=== PATIENT | female | born 1965 | race Caucasian/White ===

== ENCOUNTER 2024-11-09 10:50 | Outpatient (AMB) | payer OTHER, SELFPAY ==
[2024-11-09 11:14] VITALS: BP 140/82; PULSE 94; O2SAT 98; BMI 38.3
--- NOTE | 2024-11-09 11:14 | MHC.OFFVIS ---
Vital Signs 11/09/24 11:14 Height 5 ft 4 in Weight 223 lb 5.252 oz BMI 38.3 BP 140/82 H Blood Pressure Location Lt brachial Position Sitting Pulse 94 Pulse Source Pulse Oximeter Pulse Oximetry (%) 98 Oxygen Delivery Method Room Air Intake Visit Reasons: + MICHAEL/CM Intake Note: Patient presents for follow up on +MICHAEL. She is a new patient. Allergies levofloxacin [From Levaquin] Allergy (Mild, Verified 11/09/24 11:19) achilles pain From Augmentin Adverse Reaction (Mild, Uncoded 11/09/24 11:17) VOMITING HPI HPI + MICHAEL/CM: Details: Dx chronic fatigue syndrome [address] Ara JORDAN. She had elevated inflammatory markers. She felt well in 2020 walking 6 miles a day. Her fatigue has worsened. She is not able to walk more than 2 miles. Drinks 5-6 cups of tea a day. She had COVID-19 three times. Second and third infection exacerbated fatigue and brain fog. She worked half time. Denies fevers, rashes, photosensitivity, oral and genital ulcers, pleurisy, dyspnea, rayanud's syndrome, urianry symptoms, joint swelling. + severe dry eyes and dry mouth. On restasis She has GI discomfort with diarrhea. She has had evaluations from GI with her last evaluation being in 2018. She was told she has IBS. hx asthma controlled, nasal allergies No family history of rheumatological disease. She reports that her father's side has history of and having autoimmune disease. MICHAEL 1:320, RF 14.8 05/2024 Review of Systems Const All systems reviewed & are unremarkable except as noted in HPI and below Physical Exam Vital Signs: Last Vital Signs Pulse 94 11/09/24 11:14 BP 140/82 H 11/09/24 11:14 Pulse Ox 98 11/09/24 11:14 Oxygen Delivery Method Room Air 11/09/24 11:14 BMI result Body Mass Index 38.3 Const Other: General: Comfortable CVS: RRR Respiratory: clear to auscultation bilaterally. Good respiratory effort Lymph nodes: No cervical lymphadenopathy present Skin: No lesions seen MSK: No tenderness of any joints. No synovitis. Good range of motion of upper extremities and lower extremities. Results Reviewed Results Reviewed: Labs from 06/18/2024 reviewed. Assessment & Plan Assessment & Plan (1) Chronic fatigue: Comment: History of chronic fatigue syndrome diagnosed in 2005. She reports history of elevated inflammatory markers. Recently symptoms have gotten worse this year. She has had COVID 3 times since 2022, which is exacerbated fatigue and brain fog. She remains functional. She has a history of chronic dry eyes and dry mouth with recent labs from May revealing high titer positive MICHAEL 1:320 and low titer positive rheumatoid factor. Her clinical presentation and serologies are concerning for Sjogren syndrome. I will workup Sjogren syndrome with antibodies obtain recent eye exam. Due to high titer positive MICHAEL, I will complete workup for systemic lupus erythematosus although my clinical suspicion is low. She does not have synovitis on exam to suggest inflammatory arthritis. Code(s): R53.82 - Chronic fatigue, unspecified Category: Medical Plan: Labs ordered Requesting last eye exam. May need to consider Elizabeth's test. After lab results are reviewed, we will consider pursuing a minor salivary gland biopsy Return to clinic in 1 month (2) Positive MICHAEL (antinuclear antibody): Code(s): R76.8 - Other specified abnormal immunological findings in serum Category: Medical Plan: See above (3) Rheumatoid factor positive: Code(s): R76.8 - Other specified abnormal immunological findings in serum Category: Medical Plan: See above (4) Sicca syndrome: Code(s): M35.00 - Sjogren syndrome, unspecified Category: Medical Plan: See above Orders: Orders Erythrocyte Sedimentation Rate Today M35.00 - Sjogren syndrome, unspecified, R53.82 - Chronic fatigue, unspecified, R76.8 - Other specified abnormal immunological findings in serum Complement C3 Today M35.00 - Sjogren syndrome, unspecified, R53.82 - Chronic fatigue, unspecified, R76.8 - Other specified abnormal immunological findings in serum Complement C4 Today M35.00 - Sjogren syndrome, unspecified, R53.82 - Chronic fatigue, unspecified, R76.8 - Other specified abnormal immunological findings in serum Sjogren's Antibodies Today M35.00 - Sjogren syndrome, unspecified, R53.82 - Chronic fatigue, unspecified, R76.8 - Other specified abnormal immunological findings in serum Creatinine Today R53.82 - Chronic fatigue, unspecified, R76.8 - Other specified abnormal immunological findings in serum Alanine Aminotransferase Today M35.00 - Sjogren syndrome, unspecified, R53.82 - Chronic fatigue, unspecified, R76.8 - Other specified abnormal immunological findings in serum Aspartate Amino Transferase Today R53.82 - Chronic fatigue, unspecified C Reactive Protein Today R53.82 - Chronic fatigue, unspecified, R76.8 - Other specified abnormal immunological findings in serum Anti DNA DS Antibody Today M35.00 - Sjogren syndrome, unspecified, R53.82 - Chronic fatigue, unspecified, R76.8 - Other specified abnormal immunological findings in serum Anti Extractable Nuclear Ag Today R53.82 - Chronic fatigue, unspecified UA w Microscopic Today M35.00 - Sjogren syndrome, unspecified, R53.82 - Chronic fatigue, unspecified, R76.8 - Other specified abnormal immunological findings in serum Protein Creatinine Ratio, Ur Today M3. - Sjogren syndrome, unspecified, R53.82 - Chronic fatigue, unspecified, R76.8 - Other specified abnormal immunological findings in serum Coding Level of Care Code New Pt Level 4 (63091) Diagnoses Chronic fatigue R53.82 Positive MICHAEL (antinuclear antibody) R76.8 Rheumatoid factor positive R76.8 Sicca syndrome M3
--- OUTSIDE RECORDS SUMMARY | 2024-11-10 01:09 | XMS_ITS | Continuity of Care Document ---
Author Organization [facility] Address [address] [place] [address]- Care Team Providers Care Senior Designer Name Role Phone Coby LINDQUIST, Monique Beebe Primary Care Physici an Encounter [facility] Date(s): 10/25/24 - 11/01/24 [facility] [address] [place] [address]- Attending Physician: Monique Tenorio NP Encounter Type: Office Visit Allergies, Adverse Reactions, Alerts Substance Criticality Severity Reaction Reaction Severity Status Augmentin Vomiting/Diarrhea Ac tive Levaquin Active Peanuts Active NSAIDs GI upset Active Medications azelastine-fluticasone 137 mcg-50 mcg/inh nasal spray 1 sprays, INSTILL 1 SPRAY INTO AFFECTED NOSTRIL S) TWO TIMES A DAY Start Date: 10/25/24 Status: Ordered Repeat number: 1 Breo Ellipta 100 mcg-25 mcg/inh inhalation powder 1 puffs, INHALE 1 PUFF INTO THE LUNGS EVERY MORNING Start Date: 10/25/24 Status: Ordered Repeat number: 1 budesonide 0.5 mg/2 mL inhalation suspension 0.5 mg, 2, mL, INHALE 1 VIAL 2 ML) VIA NEBULIZER TWICE A DAY Start Date: 10/25/24 Status: Ordered Repeat number: 1 estradiol 10 mcg vaginal tablet 1 tablet = 10 mcg, INSERT 1 TABLET VAGINALLY TWICE A WEEK Start Date: 10/25/24 Status: Ordered Repeat number: 1 Magnesium Citrate By Mouth, 0 Refills, Maintenance, 10/25/24 9:43:00 AM EST, Partial fill upon patient request if theprescription is for a schedule II opioid drug. Start Date: 10/25/24 Status: Ordered Repeat number: 1 Probiotic Formula By Mouth, Daily, 0 Refills, Maintenance, 10/25/24 9:43:00 AM EST, Partial fill upon patient requestif the prescription is for a schedule II opioid drug. Start Date: 10/25/24 Status: Ordered Repeat number: 1 tretinoin 0.05% topical cream See Instructions, 1 applicator, # 45 Gm, 0 Refills, Maintenance, 10/25/24 10:05:00 AM EST, Cream, [facility], Partial fill upon patient request if the prescription is for a scheduleII opioid drug. (Pt will pay out pocket for this med)., 1 applicator, 163, cm, 10/25/24 9:35:00 EST, Height, 101.5, kg, 08/10/23 23:09:00 EDT, Dry Weight Start Date: 10/25/24 Status: Ordered Quantity: 45.0 Unit: g Repeat number: 1 Indication: Other specified disorders of the skin and subcutaneous tissue triamcinolone 0.1% topical cream See Instructions, to affected area, # 30 Gm, 0 Refills, Maintenance, 10/25/24 10:05:00 AM EST, Cream, [facility], Partial fill upon patient request if the prescription is for a schedule II opioid drug., to affected area, 163, cm, 10/25/24 9:35:00 EST, Height, 101.5, kg, 08/10/23 23:09:00 EDT, Dry Weight Start Date: 10/25/24 Status: Ordered Quantity: 30.0 Unit: g Repeat number: 1 Indication: Dermatitis, unspecified triamcinolone 0.1% topical ointment 1 application, Topically, 2 times a day, # 30 Gm, 0 Refills, Maintenance, 10/28/24 8:52:00 AM EST, Ointment, [facility], Partial fill upon patient request if the prescription is fora schedule II opioid drug., 1 application Topically 2 times a day,x14 days, 163, cm, 10/25/24 9:35:00 EST, Height, 101.5, kg, 08/10/23 23:09:00 EDT, Dry Weight Start Date: 10/28/24 Stop Date: 11/11/24 Status: Ordered Quantity: 30.0 Unit: g Repeat number: 1 Indication: Dermatitis, unspecified Vitamin C By Mouth, Daily, 0 Refills, Maintenance, 10/25/24 9:43:00 AM EST, Partial fill upon patient requestif the prescription is for a schedule II opioid drug. 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 Confirmed Active Prediabetes Confirmed Active Vital Signs Most recent to oldest [Reference Range]: 1 Height 163 cm (10/25/24 9:35 AM) Weight 102.2 kg (10/25/24 9:35 AM) Oxygen Saturation [94-100 %] 98 % (10/25/24 9:35 AM) Pulse Rate [55-90 bpm] 91 bpm *H* (10/25/24 9:35 AM) Body Mass Index [18.5-24.99 kg/m2] 38.47 kg/m2 *>HHI* (10/25/24 9:35 AM) Blood Pressure [90-138/55-84 mm Hg] 131/ 85mm Hg (10/25/24 9:35 AM) Blood pressure sites Arm, left (10/25/24 9:35 AM) Weight Obtained Via Standing scale (10/25/24 9:35 AM) Social History Social History Type Response Smoking Status Never (less than 100 in lifetime) entered on: 08/10/23 Sex Sex Representation Female (finding) Note * Cece Samaniego: PERFORM Event Display: Patient Education/Instruction Authored Date: [id number] Ambulatory Adult Visit Summary [address] [address] Name: HOLDEN KAYE : 1965?? Visit: 2024 09:31?? Ambulatory Visit Instructions ?? Your Care Team Primary Care Provider Monique Tenorio NP? This Visit Provider Monique Tenorio NP Your Diagnosis Prediabetes Age-related facial wrinkles Acute dermatitis Myalgic encephalomyelitis/chronic fatigue syndrome (ME/CFS) Prediabetes Polyarthritis with positive rheumatoid factor Positive MICHAEL (antinuclear antibody) Non-seasonal allergic rhinitis due to other allergic trigger Obesity, Class III, BMI 40-49.9 (morbid obesity) Vitals Signs Pulse Rate:??91 bpm??High Height: 163 cm Systolic Blood Pressure: 131 mm Hg Weight: 102.2 kg Diastolic Blood Pressure:??85 mm Hg??High Body Mass Index:??38.47 kg/m2??Critical Oxygen Saturation: 98 % Body surface area: 2.15 What to do next Scheduled Follow-Up Appointments Thursday 10:40 AM EST ?? With: Monique Tenorio NP Where: [address] [address]- Status: Pending Follow-Up Appointments Follow up Appointment - Ordered?-- 3 months, 10/25/24 10:09:00 EST Future Orders Hemoglobin A1C (Monitoring) - Routine, Once, 10/25/24 10:02:00 EST, Order for Today, [facility], Blood?? Medications The list below reflects the information in our records and provided by you today along with any changes made during this visit. Please continue your medications until treatment is completed or stopped by your provider. If this is different from the information you have or there are other questions,please contact the prescribing provider. What How Much When Why Instructions New Tretinoin Topical (tretinoin 0.05% topical cream) See instructions Age-related facial wrinkles 1 applicator ?? Pickup at [facility] New Triamcinolone Topical (triamcinolone 0.1% topical cream) See instructions Acute dermatitis to affected area ?? Pickup at [facility] Unchanged Ascorbic Acid (Vitamin C) Oral Daily Unchanged azelastine-fluticasone nasal (azelastine-fluticasone 137 mcg-50 mcg/ inh nasal spray) 1 spray(s) INSTILL 1 SPRAY INTO AFFECTED NOSTRIL S) TWO TIMES A DAY ?? Unchanged bifidobacterium-lactobacillus (Probiotic Formula) Oral Daily Unchanged Budesonide (budesonide 0.5 mg/ 2 mL inhalation suspension) 2 Milliliter INHALE 1 VIAL ?? 2 ML) VIA NEBULIZER TWICE A DAY ?? Unchanged Estradiol Topical (estradiol 10 mcg vaginal tablet) 1 tab(s) INSERT 1 TABLET VAGINALLY TWICE A WEEK ?? Unchanged fluticasone-vilanterol (Breo Ellipta 100 mcg-25 mcg/ inh inhalation powder) 1 puff(s) INHALE 1 PUFF INTO THE LUNGS EVERY MORNING ?? Unchanged Magnesium Citrate Oral Pharmacy Information [facility]: [address], [place] [id number] [phone] Test Performed Below is a partial list of the tests performed during your Visit. You may have had other tests and procedures not included in this list. Please discuss all test results with your provider. Hemoglobin A1C (Monitoring)?-- Results Pending -- Medications and Immunizations Administered Medications Given During Visit No medications given during this visit.?? Allergies (NKA means No Known Allergies) Augmentin??(Vomiting/Diarrhea) Levaquin NSAIDs??(GI upset) Peanuts Common Emergency Awareness Tips IS IT A STROKE? Act FAST and Check for these signs: FACE Does the face look uneven? ARM Does one arm drift down? SPEECH Does their speech sound strange? TIME Call at any sign of stroke ?? Heart Attack Signs Chest discomfort: Most heart attacks involve discomfort in the center of the chest and lasts more than a few minutes, or goes away and comes back. It can feel like uncomfortable pressure, squeezing, fullness or pain. Discomfort in upper body: Symptoms can include pain or discomfort in one or both arms, back, neck, jaw or stomach. Shortness of breath: With or without discomfort. Other signs: Breaking out in a cold sweat, nausea, or lightheaded. Remember, MINUTES DO MATTER. If you experience any of these heart attack warning signs, call to get immediate medical attention! ?? Smoking can increase your chances of developing chronic health problems and can cause harmful effects to other family members in your house. If you smoke, you are strongly encouraged to quit. Please call [facility] at [phone] or [phone] ([phone]) or log in to [email or web address] for referrals to smoking cessation programs. ?? The National Suicide Prevention Hotline is available 22/06 if you or someone you know needs to find a reason to keep living. By calling 1-562-089-mhsn (1586) you'll be connected to a skilled, trained counselor at a crisis center in your area. [facility] [employer] Portal You can view and manage your care through the patient portal or by using a health care ethan of your choosing. [employer] is a website that allows you to securely view your medical information including your hospital discharge summary, office visit summaries, medications and follow-up visits. You can also request appointments, renew medications, and request access to your medical information using a health care ethan of your choosing, or just ask a question. You can enroll at [email or web address] or register during your next office visit. [facility], in keeping with [facility] guidance, no longer requires face masks for staff, patientsor visitors in most situations. Similiar to time spent indoors at other locations, there is the chance that you were exposed to repiratory viruses during your time with us (such as flu or COVID-19). If you develop symptoms concerning for a viral respiratory infection, please seek testing (and treatment if indicated) from your medical provider or home test kit. ?? Disclaimer: The information provided is of a general nature and is intended to be used in conjunction with the recommendations and advice of your health care practitioner. Every effort has been made to ensure that the information provided is accurate and complete at the time it is provided to you however, as your needs change, or, as new information becomes available, different or additional instructions may be required. ?? If you have questions, please consult with your primary care provider or pharmacist, as appropriate. This information is not intended to serve as substitution for assessment and evaluation by a qualified health care provider. If you do not have a primary care provider, you may find a [facility] provider by calling [facility] Link at [phone]. Patient Care team information Care Team Personnel Name: Monique Tenorio NP Position: [facility] PCO Associate Professional Member Role: PCP Address: [address] [place] [id number] Telecom: Name: Shahid Hinds Position: [facility] Outreach Member Role: [employer] Consulting Physician Care Team Related Persons Name: FADI GRAY Insurance Providers Guarantor name: HOLDEN KAYE [facility] Information #: 2 [facility] Member Number: [id number] Policy Number: NA Group Number: [id number] Health Plan Information #: 4 Payer: [facility] Member Number: [id number] Policy Number: NA Group Number: [id number] Health Plan Information #: 1 Payer: [facility] [employer] HMO Member Number: [id number] Policy Number: NA Group Number: [id number] Health Plan Information #: 3 Payer: [facility] FF NON BHP HMO Member Number: [id number] Policy Number: NA Group Number: [id number]
== END 2024-11-09 12:09 | disposition home or self-care (01) ==
PROVIDERS: Visit Provider Internal Medicine Rheumatology
DX: R53.82 Chronic fatigue, unspecified (principal); R76.8 Other specified abnormal immunological findings in serum; M35.00 Sjogren syndrome, unspecified
CPT/HCPCS: 99204

== ENCOUNTER → 2024-11-09 10:50 | Outpatient (BNVA) | payer OTHER, SELFPAY | PROVIDERS: Visit Provider Internal Medicine Rheumatology ==

== ENCOUNTER 2024-11-09 12:41 | Outpatient (REF) | payer OTHER, SELFPAY ==
[2024-11-09 14:34] LABS: Aspartate Amino Transferase 22 U/L (5-31); C Reactive Protein 0.69 mg/dL (< or = 0.50); Estimated Glomerular Filt Rate > 60
[2024-11-09 14:40] LABS: Alanine Aminotransferase 16 U/L (0-31)
[2024-11-09 14:52] LABS: Erythrocyte Sedimentation Rate 23 MM/HR (0-20)
[2024-11-10 15:49] LABS: Anti DNA DS Antibody <1 IU/mL; Antibody to SS-A Antigen <1.0 NEG AI (<1.0 NEG); Antibody to SS-B Antigen <1.0 NEG AI (<1.0 NEG); SM/Ribonucleoprotein Ab <1.0 NEG AI (<1.0 NEG); Smith Protein <1.0 NEG AI (<1.0 NEG)
[2024-11-14 11:09] LABS: Complement C3 167 mg/dL (83-193)
== END 2024-11-09 12:42 | disposition home or self-care (01) ==
LOC: HO.WFDLDS 12:41
PROVIDERS: Visit Provider Internal Medicine Rheumatology
DX: M35.00 Sjogren syndrome, unspecified (principal); R76.8 Other specified abnormal immunological findings in serum; R53.82 Chronic fatigue, unspecified; R53.83 Other fatigue
CPT/HCPCS: 36415; 82565; 84450; 84460; 85652; 86140; 86160; 86225; 86235

== ENCOUNTER 2024-12-06 17:47 | Outpatient (REF) | payer OTHER, SELFPAY ==
[2024-12-06 18:14] LABS: Appearance Urine Clear; Color Urine Yellow; Glucose Urine UA Negative (Negative); Leukocyte Esterase Urine Negative (Negative); Nitrite Urine Negative (Negative); Urine Blood Negative (Negative); Urine Ketones Negative (Negative); Urine Protein Negative (Neg-Trace)
[2024-12-06 18:19] LABS: Bacteria Urine Trace (None Seen); Creatinine Urine 48.24 mg/dL; Hyaline Casts Urine 0-2 /LPF (0-2); RBC Urine 0-2 /HPF (0-2); Total Protein Urine Random < 7 mg/dL (<12); WBC Urine 0-5 /HPF (0-5)
--- OUTSIDE RECORDS SUMMARY | 2024-12-06 19:39 | XMS_ITS | Continuity of Care Document ---
Author Organization [facility] Address [address] [place] [address]- Care Team Providers Care Post Adoption Coordinator Name Role Phone Coby LINDQUIST, Monique Beebe Primary Care Physici an Encounter [facility] Date(s): 10/26/24 - 11/25/24 [facility] [address] [place] [address]- Encounter Type: Triage Allergies, Adverse Reactions, Alerts Substance Criticality Severity [...] rheumatoid factor Confirmed Active Prediabetes Confirmed Active Social History Social History Type Response Smoking Status Never (less than 100 in lifetime) entered on: 08/10/23 Sex Sex Representation Female (finding) Patient Care team information Care Team Personnel Name: Monique Tenorio NP Position: [facility] PCO Associate Professional Member Role: PCP Address: [address] [place] [address] Telecom: Name: Shahid Hinds Position: [facility] Outreach Member Role: [employer] Consulting Physician Care Team Related Persons Name: FADI GRAY Insurance Providers Guarantor name: HOLDEN KAYE [employer] Plan Information #: 1 Payer: [employer] H[employer] Member Number: NA Policy Number: NA Group Number: NA
--- OUTSIDE RECORDS SUMMARY | 2024-12-06 19:39 | XMS_ITS | Continuity of Care Document ---
Author Organization [facility] Address [address] [place] [address]- Care Team Providers Care Mathematical Statistician Name Role Phone Coby LINDQUIST, Monique Beebe Primary Care Physici an Encounter [facility] Date(s): 10/25/24 - 11/24/24 [facility] [address] [place] [address]- Encounter Type: Triage Allergies, Adverse Reactions, Alerts [...] Team Personnel Name: Monique Tenorio NP Position: [facility] PCO Associate Professional Member Role: PCP Address: [address] [place] [address] Telecom: Name: Shahid Hinds Position: [facility] Outreach Member Role: Lifetime Consulting Physician Care Team Related Persons Name: FADI GRAY Insurance Providers Guarantor name: HOLDEN KAYE C[employer] Plan Information #: 1 Payer: [employer] HMO Member Number: NA Policy Number: NA Group Number: [id number]
== END 2024-12-06 17:48 | disposition home or self-care (01) ==
LOC: HO.LNP 17:47
PROVIDERS: Visit Provider Internal Medicine Rheumatology
DX: M35.00 Sjogren syndrome, unspecified (principal); R76.8 Other specified abnormal immunological findings in serum; R53.82 Chronic fatigue, unspecified
CPT/HCPCS: 81001; 82570; 84156

== ENCOUNTER 2025-01-26 07:55 | Outpatient (AMB) | payer OTHER, SELFPAY ==
--- OUTSIDE RECORDS SUMMARY | 2025-01-26 08:02 | XMS_ITS | Encounter Summary ---
Author Organization [email or web address] [facility] Address [address] [place] [id number] Care Team Providers Care Design Director Name Role Phone Monique Tenorio APPLICATIONS INSTRUCTOR Primary Care Provider Unavailable Jazzy Adan Unavailable Unavailable Provider, Not In System Primary Care Provider Un available Encounter Details Date Type Department Care Team (Late st Contact Info) Description 11/18/2022 [facility] [place] [address] [place] [address] Dental, Provider, DDS Social History Tobacco Use Types Packs/Day Years Used Date Smoking Tobacco: Never Assessed Comments Unknown Sex and Gender Information Value Date Recorded Sex Assigned at Female 12/22/2022 11:00 AM EST Legal Sex Female 5:35 PM EDT Gender Identity Female 12/22/2022 11:00 AM EST Sexual Orientation Straight 12/22/2022 11 :00 AM EST documented as of this encounter Plan of Treatment Upcoming Encounters Date Type Department Care Team (Late st Contact Info) Description 08/10/2025 10:10 AM EDT Office Visit [place] [facility] [address] [place] [address] Candice Miranda documented as of this encounter Procedures Procedure Name Priority Date/Time Associated Diagnosis Comments 13 DO RESIN-BASED COMPOSITE - 2 SURF, POSTERIOR Routine 10/17/2022 12:00 AM EST PROPHYLAXIS - ADULT Routine 10/17/2022 1 2:00 AM EST PERIODIC ORAL EVALUATION - ESTABLISHED PATIENT Routine 10/17/2022 12:00 AM EST documented in this encounter Visit Diagnoses Not on filedocumented in this encounter Care Teams Design Director Relationship Specialty Start Date End Date Monique Tenorio FNP PCP - General Family Medicine 02/19/23 11/24/24 Provider, Not In System PCP - General Family Medicine 11/25/24 Jazzy Adan [facility] Health Worker 04/06/23 documented as of this encounter
--- OUTSIDE RECORDS SUMMARY | 2025-01-26 08:02 | XMS_ITS | Encounter Summary ---
Author Organization [facility] Address [address] [place] [address] Care Team Providers Care Hand Fabric Cutter Name Role Phone Loco, Jazzy Unavailable Unavailable Provider, Not In System Primary Care Provider Un available Reason for Visit * Reason Comments Med Refill Encounter Details Date Type Department Care Team (Late st Contact Info) Description 01/03/2025 [address]ill [place] [facility] [address] [place] [address] Claire Solis, [address] [place] [address] Non-seasonal allergic rhinitis, unspecified trigger Social History Tobacco Use Types Packs/Day Years Used Date Smoking Tobacco: Never Smokeless Tobacco: Never Alcohol Use Standard Drinks/Week Comments Yes 0 (1 standard drink = 0.6 oz pur e alcohol) less than weekly Depression Answer Date Recorded Patient Health Questionnaire-9 Score 12 04/27/2024 Patient Health Questionnaire-9 Score 12 04/27/2024 Last PHQ-9: Questionnaire Data Not on file 0 04/27/2024 Housing Stability Answer Date Recorded What is your housing situation today? I have bulmaro ruiz 09/28/[address] you li ve. Do you have problems with any of the following? None of the above 09/28/2023 Food Insecurity Answer Date Recorded Within the past 12 months, y ou worried that your food would run out before you got money to buy more: Never True 09/28/2023 Within the past 12 months,th e food you bought just didn't last and you didn't have enough money to get more: Never True Transportation Answer Date Recorded In the past 12 months, has l ack of transportation kept you from medical appts, meetings, work or from getting things needed for daily living? No 09/28/2023 Utilities Answer Date Recorded In the past 12 months, has t he electric, gas, oil or water company threatened to shut off services in your home? No 09/28/2023 Depression Answer Date Recorded Patient Health Questionnaire-2 Score 0 04/27/2024 Education Answer Date Recorded What is the highest level of school you have completed or the highest degree you have received? Master's degree (e.g., MA, MS, Michel, MEd, ELECTRONIC DEVICE MONITOR, MISHA) 07/22/2023 Comments Unknown Sex and Gender Information Value Date Recorded Sex Assigned at Female 12/22/2022 11:00 AM EST Legal Sex Female 5:35 PM EDT Gender Identity Female 12/22/2022 11:00 AM EST Sexual Orientation Straight 12/22/2022 11 :00 AM EST 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 on file Not on file documented as of this encounter Plan of Treatment Upcoming Encounters Date Type Department Care Team (Late st Contact Info) Description 08/10/2025 10:10 AM EDT Office Visit [facility] D[facility] [address] [place] [address] Candice Miranda documented as of this encounter Visit Diagnoses Diagnosis Non-seasonal allergic rhinitis, unspecified trigger documented in this encounter Additional Health Concerns Assessment Noted Time PHQ-9 Depression Total Score: 12 024 4:32 PM EDT documented as of this encounter Care Teams Hand Fabric Cutter Relationship Specialty Start Date End Date Provider, Not In System PCP - General Family Medicine 11/25/24 Jazzy Adan [facility] Worker 04/06/23 documented as of this encounter
--- OUTSIDE RECORDS SUMMARY | 2025-01-26 08:02 | XMS_ITS | Clinical Summary ---
Author Organization [employer] Address [address] [place] [address] [place] [address] Care Team Providers Care Mold Checker Name Role Phone Jazzy Adan Unavailable Unavailable Provider, Not In System Primary Care Provider Un available Allergies Active Allergy Reactions Criticality Noted Date Comments Amoxicillin-Pot Clavulanate Low 12/22/2022 Other reaction(s): stomach upset, ok with amox Erythromycin Low 12/22/2022 Other reaction(s): stomach upset, ok with azith Levofloxacin High 12/22/2022 Other reaction(s): achilles tendonitis Nsaids Low 12/22/2022 Other reaction(s): diarrhea Other Anaphylaxis High 06/12/2023 Cilantro - mouth and tongue swelling Oxycodone Itching Low 03/17/2023 Oxycodone-Acetaminophen 09/06/2012 Other reaction(s): itching Peanut-Containing Drug Products Low 12/22/2022 Budesonide-Formoterol Fumarate Diarrhea Low 03/17/2023 Medications diphenhydrAMINE (BENADryl) 25 MG capsule Benadryl Active ascorbic acid (Vitamin C) 100 MG chewable tablet Vitamin C Active Cetirizine HCl (ZyrTEC ALLERGY) 10 MG capsule ZyrTEC Allergy Activ e LORazepam (Ativan) 0.5 MG tablet if needed. 04/21/20 22 Active albuterol (Proventil HFA) 108 (90 Base) MCG/ACT inhalerIndicati ons:Asthma in adult without complication, unspecified asthma severity, unspecified whether persistent Inhale 2 puffs every 6 (six) hours if needed for wheezing. 18 g 3 04/15/20 23 Active Vagifem 10 MCG tablet vaginal tablet INSERT ONE TABLET VAGINALLY TWICE A WEEK 8 tablet 4 05/30/20 24 Active EPINEPHrine (Epipen) 0.3 MG/0.3ML injection syringe USE 1 INJECTION DIRECTED NEEDED 2 each 1 05/30/20 24 Active Breo Ellipta 100-25 MCG/ACT aerosol powderIndicatio ns:Moderate persistent asthma, unspecified whether complicated INHALE ONE PUFF BY MOUTH EVERY MORNING 60 each 3 08/12/20 24 Active budesonide (Pulmicort) 0.5 MG/2ML nebulizer solution INHALE 1 VIAL (2ML) VIA NEBULIZER TWCE DAILY 120 mL 11 08/25/20 24 Active tretinoin (Retin-A) 0.05 % creamIndication s:Acne, unspecified acne type APPLY TOPICALLY AT BEDTIME 45 g 10/05/20 24 025 Active cycloSPORINE (Restasis) 0.05 % ophthalmic emulsionIndicat ions:Keratitis sicca Administer 1 drop into both eyes 2 times daily. 180 each 3 11/02/20 24 Active Azelastine-Flut icasone 137-50 MCG/ACT suspensionIndic ations:Non-seas onal allergic rhinitis, unspecified trigger INSTILL 1 SPRAY INTO AFFECTED NOSTRIL(S) TWO TIMES A DAY 23 g 1 01/04/20 25 Active Azelastine-Flut icasone 137-50 MCG/ACT suspensionIndic ations:Non-seas onal allergic rhinitis, unspecified trigger INSTILL 1 SPRAY INTO AFFECTED NOSTRIL(S) TWICE DAILY 23 g 1 09/19/20 24 025 Discontinued Active Problems Problem Noted Date Diagnosed Date Hepatic steatosis 06/08/2024 Abdominal bloating 04/29/2024 Transaminitis 07/25/2023 Overview (07/25/2023): Elevated alk phos Scheduled for liver UL on 07/29/23. Prediabetes 07/25/2023 Overview (07/25/2023): A1c @ 5.7% will recheck in 6 months. Acute anxiety 04/08/2023 Adjustment reaction with anxiety and depression 04/08/2023 Allergic rhinitis 04/08/2023 Asthma in adult 04/08/2023 Atrophic vaginitis 04/08/2023 Chronic low back pain 04/08/2023 Elevated LDL cholesterol level 04/08/2023 Irritable bowel syndrome with diarrhea 3 Overview (04/29/2024): Lets try to eliminate non-essential medications to see if this helps with overall symptoms. - Singulair (to be discontinued) - Muscle relaxer (to be discontinued) - Digestive enzymes (to be discontinued) - Cromolyn (to be discontinued) - B complex vitamins (to be discontinued) - Probiotic (to be discontinued) - Vitamin K (to be discontinued) - Vitamin C (to be discontinued) - Benadryl (to be discontinued) - Flonase (Continue Daily) - Zyrtec(Continue daily) Moderate persistent asthma 04/08/2023 Primary insomnia 04/08/2023 Seasonal allergic rhinitis due to pollen 023 Overview (07/25/2023): Followed by allergy/ immunology. Up coming appointment in 09/21 Vitamin D deficiency 04/08/2023 Depression 03/21/2023 Fatigue 03/21/2023 Migraine without aura and responsive to treatmen t 03/21/2023 Myositis 03/21/2023 Obesity 03/21/2023 Polycystic ovaries 03/21/2023 Resolved Problems Problem Noted Date Diagnosed Date Resolved Date Stage 1 mild COPD by GOLD classification 04/08/2023 07/25/2023 Encounters Date Type Department Care Team Description 01/03/[address] [facility] MEDICAL [address] [place] [address] Claire Solis DO Non-seasonal allergic rhinitis, unspecified trigger 11/18/[address] [facility] MEDICAL [address] [place] [address] Monique Tenorio FNP Outreach 11/02/[address] [facility] OPTOMETRY [address] [place] [address] Denisa Chan, OD Keratitis sicca 11/01/2024 10:00 AM EST Office Visit [facility] DENTAL [address] [place] [address] Shira Santiago Encounter for dental examination (Primary Dx); Stage 2 grade B generalized periodontitis per AAP/EFP 2017 classification 11/01/2024 Telephone [facility] MEDICAL [address] [place] [address] Monique Tenorio FNP Med Refill from Last 3 Months Immunizations Name Administration Dates Next Due Influenza Injectable Quadriv alant Preservative Free IIV4 MDCK 11/03/2022,08/19/2021 Influenza injectable quadriv alent IIV4 with preservative 10/14/2019 Influenza injectable quadriv alent preservative free 12/18/2023,07/25/2020 Influenza, IIV3, injectable 07/27/2020,1 ,09/20/2010,08/23,10/23/2008 Influenza, Split (incl. americo fied surface antigen) 09/20/2010 Novel [id number], all formulations 11/13/2009 PPD Test 12/14/2007 Pneumococcal Conjugate PCV 20 11/03/2022 Rabies, intramuscular 07/06/2012, 012,06/26/2012,06/23 TD (adult), 2 Lf tetanus tox oid, preservative free, adsorbed 11/18/2006 Tdap 11/09/2022 Zoster, Recombinant 11/05/2020,09/06/2020 Social History Tobacco Use Types Packs/Day Years Used Date Smoking Tobacco: Never Smokeless Tobacco: Never Tobacco Cessation:Counseling Given: Not Answered Alcohol Use Standard Drinks/Week Comments Yes 0 [...] Master's degree (e.g., MA, MS, Michel, MEd, BOSOM PRESSER, MISHA) 07/22/2023 Comments Unknown Sex and Gender Information Value Date Recorded Sex Assigned at Female 12/22/2022 11:00 AM EST Legal Sex Female 5:35 PM EDT Gender Identity Female 12/22/2022 11:00 AM EST Sexual Orientation Straight 12/22/2022 11 :00 AM EST 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 on file Not on file Last Filed Vital Signs Vital Sign Reading Time Taken Comments Blood Pressure 112/80 06/29/2024 8:34 AM EDT Pulse 101 06/08/2024 1:54 PM EDT Temperature 36.2 ??C (97.1 ??F) 06/29/2024 8:34 AM ED T Respiratory Rate 16 04/27/2024 4:23 PM EDT Oxygen Saturation 98% 06/08/2024 1:54 PM EDT Inhaled Oxygen Concentration - - Weight 104 kg (228 lb 6.4 oz) 06/08/2024 1:54 PM EDT Height 162.6 cm (5' 4 ) 06/08/2024 1:54 PM EDT Body Mass Index 39.2 06/08/2024 1:54 PM EDT Plan of Treatment Upcoming Encounters Date Type Department Care Team (Late st Contact Info) Description 08/10/2025 10:10 AM EDT Office Visit [facility] DENTAL [address] [place] [address] Raghu Mirandaie Health Maintenance Due Date Last Done Comments CT Colonography 1967 FIT DNA/Cologuard 1967 FIT 1967 FOBT 1965 Sigmoidoscopy 1967 Alcohol/Substance Use Screening 1979 Hepatitis A Vaccines (1 of 2 - Risk 2-dose series) 1986 Hepatitis B Vaccines (1 of 3 - 19+ 3-dose series) 1986 Cervical Cancer Screening 06/29/2024 HPV/Cotest 06/29/2024 06/29/2023, 02/20/2022 Pap Smear 06/29/2024 06/29/2023, 02/20/2022 SDOH Screening 06/29/2024 06/29/2023 Diabetes: Hemoglobin A1C 07/15/2024 023, 02/12/2022, 02/12/2022, Additional history exists Depression Monitoring (PHQ-9) 10/28/2024 04/27/2024, 04/27/2024 Dental X-Ray: Full Mouth 11/02/2024 11/01/2021, 07/01 Dental X-Ray: Bitewings 01/05/2025 01/04/20 24, 11/01/2021, 12/15/2018, Additional history exists Depression Screening 04/27/2025 04/27/2024, 04/27/20 24 Dental Oral Exam 05/03/2025 11/01/2024, 03/2024, 10/17/2022, Additional history exists Dental Prophylaxis 05/03/2025 11/01/2024, 0 01/04/2024, 10/17/2022, Additional history exists Tobacco Screening 11/01/2025 11/01/2024 Mammogram 07/11/2026 07/11/2024, 06/30, 09/11/2021, Additional history exists Colonoscopy 11/17/2028 11/17/2018, 11/17/2018 Colorectal Cancer Screening 11/17/2028 Lipid Panel 06/08/2029 06/08/2024, 06/30, 02/12/2022, Additional history exists DTaP/Tdap/Td Vaccines (2 - Td or Tdap) 11/09/2032 11/09/2022, 11/18/2006 RSV Patients and Patients Aged 60 years or older (1 - 1-dose 75+ series) 2042 Zoster Vaccines Completed 11/05/2020, 09/06/2020 Pneumococcal Vaccine: 50+ Years Completed 11/03/2022 HIV Screening Completed 06/08/2024 Hepatitis C Screening Completed 06/08/2024 Influenza Vaccine Completed 09/18/2024, , 11/03/2022, Additional history exists COVID-19 Vaccine Completed 10/14/2024, , 04/14/2022, Additional history exists HIB Vaccines Aged Out No longer eligi ble based on patient's age to complete this topic HPV Vaccines Aged Out No longer eligi ble based on patient's age to complete this topic IPV Vaccines Aged Out No longer eligi ble based on patient's age to complete this topic Meningococcal Vaccine Aged Out No shruthi immanuel eligible based on patient's age to complete this topic RSV under 20 months Aged Out No longe r eligible based on patient's age to complete this topic Rotavirus Vaccines Aged Out No longer eligible based on patient's age to complete this topic Procedures Procedure Name Priority Date/Time Associated Diagnosis Comments AMB REFERRAL TO RHEUMATOLOGY Routine 11/09/2024 Positive MICHAEL (antinuclear antibody) Rheumatoid factor positive ORAL HYGIENE INSTRUCTIONS Routine 11/01/2024 10:00 AM EST Full PROPHYLAXIS - ADULT Routine 11/01/2024 10:00 AM EST PERIODIC ORAL EVALUATION - ESTABLISHED PATIENT Routine 11/01/2024 10:00 AM EST BI MAMMOGRAM SCREENING TOMOSYNTHESIS BILATERAL Routine 07/11/2024 8:45 AM EDT HEPATITIS C VIRAL RNA, QN REAL TIME PCR W/REFLS Routine 06/08/2024 3:08 PM EDT Need for hepatitis C screening test HIV P24 ANTIGEN/ANTIBODY WITH REFLEX TO CONFIRMATION Routine 06/08/2024 3:08 PM EDT Encounter for screening for HIV LIPID PANEL, STANDARD Routine 06/08/2024 3:08 PM EDT Elevated LDL cholesterol level BITEWINGS - 4 RADIOGRAPHIC IMAGES Routine 01/04/2024 2:00 PM EST HEMOGLOBIN A1C Routine 07/15/2023 9:10 AM EDT Pre-diabetes PAP, LB WITH CT/GC AND HPV Routine 06/29/2023 4:14 PM EDT INTRAORAL - COMPLETE SERIES OF RADIOGRAPHIC IMAGES Routine 11/01/2021 12:00 AM EST HM COLONOSCOPY Routine 11/17/2018 from Last 3 Months or Most Recently Relevant to Health Maintenance Results * Referral to Rheumatology (11/09/2024) Monique Tenorio FUNERAL COUNSELOR OUTPATIENT REFERRAL OR DERABLES Final Result * BI Mammogram Screening Tomosynthesis Bilateral (07/11/2024 8:45 AM EDT) Anatomical Region Laterality Modality Breast Bilateral Mammography 07/11/2024 8:45 AM EDT Narrative 07/11/2024 4:52 PM EDT PROCEDURE: MM Digital Mammo Screening INDICATION: ??Screening for breast cancer. ??No known palpable abnormalities. COMPARISON: Back to 05/12/2019. TECHNIQUE:Full-field digital CC and MLO 3D tomosynthesis images of both breasts were acquired. Computer-aided detection (CAD) was utilized in the interpretation of this study. DENSITY: There are scattered areas of fibroglandular density. FINDINGS: No suspicious masses, microcalcifications, areas of architectural distortion, or skin thickening to suggest malignancy. IMPRESSION: No mammographic evidence of malignancy. RECOMMENDATION: Annual mammographic screening. BI-RADS: 1 (Negative) Lay letter mailed to patient WSN: [id number] Ordering Physician: Hallie Bass Dictated By: ?Migue Cheryr MD Dictated Date/Time: ?07/11/24 4:11 pm Reviewed By: ?Migue Cherry MD Signed By: ? Migue Cherry MD Signed Date/Time: ? 07/11/24 4:11 pm Transcribed By: ? [facility] Date/Time: ? 07/11/24 4:06 pm Birads: Procedure Note Donotuseinterpreter, Image - 07/11/2024 PROCEDURE: MM Digital Mammo Screening INDICATION: Screening for breast cancer. No known palpableabnormalities. COMPARISON: Back to 05/12/2019. TECHNIQUE:Full-field digital CC and MLO 3D tomosynthesis images of bothbreasts were acquired. Computer-aided detection (CAD) was utilized in theinterpretation of this study. DENSITY: There are scattered areas of fibroglandular density. FINDINGS: No suspicious masses, microcalcifications, areas ofarchitectural distortion, or skin thickening to suggest malignancy. IMPRESSION: No mammographic evidence of malignancy. RECOMMENDATION: Annual mammographic screening. BI-RADS: 1 (Negative) Lay letter mailed to patient WSN: [id number] Ordering Physician: Hallie Bass Dictated By: Migue Cherry MD Dictated Date/Time: 07/11/24 4:11 pm Reviewed By: Migue Cherry MD Signed By: Migue Cherry MD Signed Date/Time: 07/11/24 4:11 pm Transcribed By: [facility] Date/Time: 07/11/24 4:06 pm Birads: us Hallie Bass MD IMG BI PROCEDURES Final Result * Hepatitis C Viral RNA, Quantitative Real-Time PCR with Reflexes (06/08/2024 3:08 PM EDT) HCV RNA, QN Real Time PCR HCV Not Detected IU/mL [facility] 1 HCV log10 CANCELED log10 IU/mL [facility] 1 Comment: Unable to calculate result since non-numeric result obtained for component test. Result canceled by the ancillary. Test Information: Comment [facility] 1 Comment:The quantitative ran ge of this assay is 15 IU/mL to 100 million IU/mL. HCV Genotype CANCELED [facility] 1 Comment: Not indicated Result canceled by the ancillary. Blood 06/08/2024 3:08 PM EDT 06/08/2024 Narrative [facility] 1 - 06/11/2024 4:05 PM EDT Performed at: ??01 - [facility] ??[id number] Physiotherapy Assistant: Glenda Soriano MD, Phone: ??[phone] [facility] B[facility] ORDERAB[facility] E dited Result - Final Performing Organization Address [facility] Co de Phone Number [facility] 1 * HIV p24 Antigen/Antibody With Reflex to Confirmation (06/08/2024 3:08 PM EDT) Pathologist [facility] HIV Ab/p24 Ag Screen Non Reactive Non Reactive [facility] 1 Comment: HIV Negative HIV-1/HIV-2 antibodies and HIV-1 p24 antigen were NOT detected. There is no laboratory evidence of HIV infection. Blood Venous blood specimen / Unknown 06/08/2024 3:08 PM EDT 06/08/2024 Narrative [facility] 1 - 06/10/2024 8:08 AM EDT Performed at: ??01 - [facility] ??[id number] Physiotherapy Assistant: Carrie Bazzi MD, Phone: ??[phone] [facility] BLOOD ORDERABLES F inal Result Performing Organization Address [facility] Co de Phone Number [facility] 1 * (ABNORMAL) Lipid Panel, Standard (06/08/2024 3:08 PM EDT) Cholesterol, Total 236(H) 100 - 199 mg/dL [facility] 1 Triglycerides 82 0 - 149 mg/dL [facility] 1 HDL Cholesterol 86 >39 mg/dL [facility] 1 VLDL Cholesterol Eben 14 5 - 40 mg/dL [facility] 1 LDL Chol Calc (NIH) 136(H) 0 - 99 mg/dL [facility] 1 Blood Venous blood specimen / Unknown 06/08/2024 3:08 PM EDT 06/08/2024 Narrative [facility] 1 - 06/09/2024 8:08 AM EDT Performed at: ??01 - [facility] [address] ??[id number] Physiotherapy Assistant: Carrie Bazzi MD, Phone: ??[phone] [facility] LAB BLOOD ORDERABLES F inal Result Performing Organization Address [facility] de Phone Number [facility] 1 * (ABNORMAL) Hemoglobin A1c (07/15/2023 9:10 AM EDT) Hemoglobin A1C 5.7(H) (4.0-5.6) % [facility] Comment: MONITORING: In known diabetic patients, hemoglobin A1c targets should be discussed with health care provider. DIAGNOSTIC USE: ??The [place] Diabetes Association (ADA) and the World Health Organization (WHO) recommend the use of HbA1c to diagnose diabetes using a threshold of 6.5%. Patients who have an HbA1c between 5.7% and 6.4% are considered at increased risk for developing diabetes in the future. CAUTION: Falsely low HbA1c results may be observed in patients with hemolytic anemia, homozygous forms of abnormal hemoglobin (e.g. SS, CC, SC), , recent blood loss or hemoglobin F greater than 7%. Fructosamine may be used as an alternate test in these cases. REFERENCE: ADA: Standards of Medical Care in Diabetes 2020, The Journal of Clinical and Applied Research and Education Volume 43, Supplement 1 Testing performed or reported by [facility], a Service of [facility], [address] [place] [address] Jaya Jordan MD, Piper Helper ALEC# [id number] Blood Venous blood specimen / Unknown 07/15/2023 9:10 AM EDT 07/15/2023 9:12 AM EDT [facility] LAB BLOOD ORDERABLES F inal Result Performing Organization Address City/[facility]/ZIP Co de Phone Number [facility] [address] [place] [phone] * PAP, LB with CT/GC and HPV (06/29/2023 4:14 PM EDT) PAP, LB WITH CT/GC AND HPV Patient Name: KEREN KAYE [facility] Comment: Patient : ?[id number] (Age: 57) Lab Accession #: ? [id number] Collection Date: ? 06/29/2023 Accession Date: ? 06/29/2023 Sign Out Date: ? 07/02/2023 Tissue Source: 1: THINPREP CREEL SELECTOR PAP TEST, CERVICAL: Final Diagnosis: NEGATIVE FOR INTRAEPITHELIAL LESION OR MALIGNANCY. Satisfactory for evaluation. ??Endocervical/transformation zone present. Procedures/Addenda: Human Papilloma Virus, High-Risk (Any Dx) ? Status: Signed Out Interpretation: Negative Methodology: We Heart It Aptima HPV mRNA assay (Nucleic Acid Amplification Test, NAAT). Clinical History: Date of Last Menstrual Period: ?? not available Menstrual History: ?? not available Contraceptive History: ??not available Ancillary Testing: ??HPV (any dx) Chlamydia/GC Case imaged by the ThinPrep Imaging System with manual rescreening or review. Clinical History (other): ??z12.4, due for 1 year f/u Phone #: ??[phone], On-Call Pathologist: ??[id number] Testing performed or reported by [facility], a Service of [facility], [address] [place] [address] Jaya Jordan MD, Piper Helper [facility]# [id number] 06/29/2023 4:14 PM EDT 06/29/2023 6:52 PM EDT Monique Tenorio FUNERAL COUNSELOR LAB CYTOLOGY ORDERABLE S Final Result Performing Organization Address [facility]/ZIP Co de Phone Number [facility] [address] [place] [phone] * (ABNORMAL) Hm Colonoscopy (11/17/2018) Colonoscopy Abnormal( A) Normal Comment:Gastritis, hiatal he rnia Historical Provider HEALTH MAINTENANCE Final Result from Last 3 Months or Most Recently Relevant to Health Maintenance Insurance [facility] , [address] [place] [address] DENTAL - [facility] Care Teams Mold Checker Relationship Specialty Start Date End Date Provider, Not In System PCP - General Family Medicine 11/25/24 Jazzy Adan Community Health Worker 04/06/23
--- OUTSIDE RECORDS SUMMARY | 2025-01-26 08:02 | XMS_ITS | Encounter Summary ---
Author Organization [employer] Address [address] [address] Care Team Providers Care Switchboard Manager Name Role Phone Monique Tenorio Primary Care Provider Unavailable Jazzy Adan Unavailable Unavailable Provider, Not In System Primary Care Provider Un available Reason for Visit * Reason Comments Med Refill Encounter Details Date Type Department Care Team (Late st Contact Info) Description 11/02/2022 Refill [facility] MEDICAL [address] [place] [address] Monique Tenorio FNP Mild persistent asthma in adult without complication (Primary Dx) Social History Tobacco Use Types Packs/Day Years Used Date Smoking Tobacco: Never Assessed Comments Unknown Sex and Gender Information Value Date Recorded Sex Assigned at Female 12/22/2022 11:00 AM EST Legal Sex Female 5:35 PM EDT Gender Identity Female 12/22/2022 11:00 AM EST Sexual Orientation Straight 12/22/2022 11 :00 AM EST documented as of this encounter Miscellaneous Notes * Telephone Encounter - CHAPINCITO Soto - 11/04/2022 10:52 AM EST Approving, but needs appt for additional refills. documented in this encounter Plan of Treatment Upcoming Encounters Date Type Department Care Team (Late st Contact Info) Description 08/10/2025 10:10 AM EDT Office Visit [facility] DENTAL [address] [place] [address] Candice Miranda documented as of this encounter Visit Diagnoses Diagnosis Mild persistent asthma in adult without complication- Primary documented in this encounter Care Teams Switchboard Manager Relationship Specialty Start Date End Date Monique Tenorio FNP PCP - General Family Medicine 02/19/23 11/24/24 Provider, Not In System PCP - General Family Medicine 11/25/24 Jazzy Adan Community Health Worker 04/06/23 documented as of this encounter
--- NOTE | 2025-01-26 08:08 | A.OFFVIS_ITS ---
Vital Signs 01/26/25 08:10 Height 5 ft 4 in Weight 235 lb 10.786 oz BMI 40.4 BP 138/90 H Blood Pressure Location Lt brachial Position Sitting Pulse 86 Pulse Source Pulse Oximeter Pulse Oximetry (%) 100 Oxygen Delivery Method Room Air Intake Visit Reasons: follow up Intake Note: Patient presents for follow up on +MICHAEL. Allergies levofloxacin [From Levaquin] Allergy (Mild, Verified 01/26/25 08:12) achilles pain cinnimon Allergy (Uncoded 01/26/25 08:12) tongue numbness From Augmentin Adverse Reaction (Mild, Uncoded 11/09/24 11:17) VOMITING HPI HPI follow up: Details: She continues to have fatigue. It took her 3 months to recover from COVID-19. She feels better and has been pacing herself. She has also about 60% improvement in her GI symptoms with reducing activity. She splitting her walks and exercising as tolerated. She continues to have dry eyes and dry mouth. She uses Restasis for dry eyes. Over the winter she has noted increased stiffness in her hands. She is dropping things. No joint swelling. Maternal aunt and grandparents had arthritis but she does not know what type. [facility] Family History Mother Arthritis Maternal Aunt Arthritis Maternal Grandmother Arthritis Paternal Aunt Arthritis Father No problems noted. Review of Systems Const All systems reviewed & are unremarkable except as noted in HPI and below Physical Exam Vital Signs: Last Vital Signs Pulse 86 01/26/25 08:10 BP 138/90 H 01/26/25 08:10 Pulse Ox 100 01/26/25 08:10 Oxygen Delivery Method Room Air 01/26/25 08:10 BMI result Body Mass Index 40.4 Const Other: General: Comfortable CVS: RRR Respiratory: clear to auscultation bilaterally. Good respiratory effort Lymph nodes: No cervical lymphadenopathy present Skin: No lesions seen MSK: No tenderness of any joints. No synovitis. Good range of motion of upper extremities and lower extremities. 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 5/5 power upper extremities. Assessment & Plan Assessment & Plan (1) Sicca syndrome: Comment: History of sicca symptoms, chronic fatigue, high titer positive MICHAEL 1:320 and low titer rheumatoid factor 14.3. SSA/SSB negative. Inflammatory markers are within age and sex suggested upper limit of normal. She is on Restasis for dry eyes. I recommend further workup along Code(s): M35.00 - Sjogren syndrome, unspecified Category: Medical Plan: Eye exam off of Restasis for Elizabeth's test and evaluation of keratoconjunc tivitis sicca. If positive, we will pursue minor salivary gland biopsy for further workup of Sjogren syndrome. At this time there is no disease modifying antirheumatic agent indicated chronic fatigue secondary to Sjogren's syndrome. Reducing exercise intensity and splitting regimen has reduced overall fatigue. (2) Hand weakness: Comment: No clinical signs of osteoarthritis. This winter she has noted increased stiffness in her hands, which may be related to early osteoarthritis in her hands. We discussed conservative management with occupational therapy to improve hand strength. Code(s): R29.898 - Other symptoms and signs involving the musculoskeletal system Category: Medical Plan: OT ordered. She prefers [place] location if possible. Orders: Orders OT Evaluation and Treatment Today R29.898 - Other symptoms and signs involving the musculoskeletal system Coding Level of Care Code Est Pt Level 4 (74170) Complex EM visit Add On G2211 Diagnoses Sicca syndrome M35.00 Hand weakness R29.898
[2025-01-26 08:10] VITALS: BP 138/90; PULSE 86; O2SAT 100; BMI 40.4
== END 2025-01-26 08:54 | disposition home or self-care (01) ==
PROVIDERS: PCP Nurse Practitioner Family; Visit Provider Internal Medicine Rheumatology
DX: M35.00 Sjogren syndrome, unspecified (principal); R29.898 Other symptoms and signs involving the musculoskeletal system
CPT/HCPCS: 99214

== ENCOUNTER → 2025-01-26 07:55 | Outpatient (BNVA) | payer OTHER, SELFPAY | PROVIDERS: PCP Nurse Practitioner Family; Visit Provider Internal Medicine Rheumatology ==

== ENCOUNTER 2025-04-26 12:58 | Outpatient (AMB) | payer OTHER, SELFPAY ==
--- NOTE | 2025-04-26 13:12 | A.OFFVIS_ITS ---
Vital Signs 04/26/25 13:14 Height 5 ft 4 in Weight 229 lb 11.547 oz BMI 39.4 BP 130/90 H Blood Pressure Location Rt brachial Position Sitting Pulse 96 Pulse Source Pulse Oximeter Pulse Oximetry (%) 99 Oxygen Delivery Method Room Air Intake Visit Reasons: 3 Months Intake Note: Patient presents for follow up on +MICHAEL. Allergies levofloxacin [From Levaquin] Allergy (Mild, Verified 01/26/25 08:12) achilles pain cinnimon Allergy (Uncoded 01/26/25 08:12) tongue numbness From Augmentin Adverse Reaction (Mild, Uncoded 11/09/24 11:17) VOMITING HPI HPI 3 Months: Details: She is currently in a middle of a flare for the last month. She was going to physical therapy for knee strengthening twice a week, which led to the flare. Knee pain and swelling has improved. She has increased fatigue and muscle weakness. Denies new joint pain. Denies dyspnea, fevers, pleurisy, cough, urinary symptoms, rash. She is experiencing diarrhea. [facility] Family History Mother Arthritis Maternal Aunt Arthritis Maternal Grandmother Arthritis Paternal Aunt Arthritis Father No problems noted. Physical Exam Vital Signs: Last Vital Signs Pulse 96 04/26/25 13:14 BP 130/90 H 04/26/25 13:14 Pulse Ox 99 04/26/25 13:14 Oxygen Delivery Method Room Air 04/26/25 13:14 BMI result Body Mass Index 39.4 Const Other: General: Comfortable CVS: RRR Respiratory: clear to auscultation bilaterally. Good respiratory effort Skin: No lesions seen MSK: No tenderness of any joints. No synovitis. Normal range of motion of upper extremities and lower extremities. Weak floor covering contractor strength. 5/5 power upper extremities. 3/5 power right hip flexor, 4/5 power left hip flexor. Rest of lower extremities are 5/5. Assessment & Plan Assessment & Plan (1) Chronic fatigue: Comment: History of chronic fatigue syndrome diagnosed in 2005 progressively getting worse with current flare. Reported history of elevated inflammatory markers. She has had COVID 3 times since 2022, which is exacerbated fatigue and brain fog. She has a history of chronic dry eyes and dry mouth with recent labs from May revealing high titer positive MICHAEL 1:320 and low titer positive rheumatoid factor. Her clinical presentation and serologies are concerning for Sjogren syndrome. SSA/SSB negative. She does not have any specific antibodies or markers suggestive of SLE. She had eye exam after last visit with Elizabeth's testing, which I do not have results of. If Elizabeth's test is positive, I will pursue further workup of Sjogren syndrome with minor salivary gland biopsy. On clinical exam she has lower extremity proximal muscle weakness. I have ordered a workup for evaluation of myopathy Code(s): R53.82 - Chronic fatigue, unspecified Category: Medical Plan: Requesting recent eye exam clinic note with Elizabeth's test. Patient will call office with information of the ENT office she is a patient of Laboratory workup ordered with inflammatory markers, muscle enzymes, CBC, creatinine, AST, ALT and UA. If normal, she will need workup for metabolic myopathy including diabetes and thyroid disease Return to clinic in 3 months (2) Positive MICHAEL (antinuclear antibody): Code(s): R76.8 - Other specified abnormal immunological findings in serum Category: Medical Plan: See above (3) Sicca syndrome: Comment: History of sicca symptoms, chronic fatigue, high titer positive MICHAEL 1:320 and low titer rheumatoid factor 14.3. SSA/SSB negative. Inflammatory markers are within age and sex suggested upper limit of normal. She is on Restasis for dry eyes. I recommend further workup along Code(s): M35.00 - Sjogren syndrome, unspecified Category: Medical Plan: See above Orders: Orders Complete Blood Count Auto Diff Today M35.00 - Sjogren syndrome, unspecified, M62.81 - Muscle weakness (generalized), R53.82 - Chronic fatigue, unspecified, R76.8 - Other specified abnormal immunological findings in serum Creatine Kinase Total Today M35.00 - Sjogren syndrome, unspecified, M62.81 - Muscle weakness (generalized), R53.82 - Chronic fatigue, unspecified, R76.8 - Other specified abnormal immunological findings in serum Creatinine Today M35.00 - Sjogren syndrome, unspecified, M62.81 - Muscle weakness (generalized), R53.82 - Chronic fatigue, unspecified, R76.8 - Other specified abnormal immunological findings in serum UA w Microscopic Today M35.00 - Sjogren syndrome, unspecified, M62.81 - Muscle weakness (generalized), R53.82 - Chronic fatigue, unspecified, R76.8 - Other specified abnormal immunological findings in serum Aldolase Today M35.00 - Sjogren syndrome, unspecified, M62.81 - Muscle weakness (generalized), R53.82 - Chronic fatigue, unspecified, R76.8 - Other specified abnormal immunological findings in serum Alanine Aminotransferase Today M35.00 - Sjogren syndrome, unspecified, M62.81 - Muscle weakness (generalized), R53.82 - Chronic fatigue, unspecified, R76.8 - Other specified abnormal immunological findings in serum Aspartate Amino Transferase Today M35.00 - Sjogren syndrome, unspecified, M62.81 - Muscle weakness (generalized), R53.82 - Chronic fatigue, unspecified, R76.8 - Other specified abnormal immunological findings in serum Erythrocyte Sedimentation Rate Today M35.00 - Sjogren syndrome, unspecified, M 62.81 - Muscle weakness (generalized), R53.82 - Chronic fatigue, unspecified, R76.8 - Other specified abnormal immunological findings in serum, Z79.899 - Other long chain quiller tender (current) drug therapy C Reactive Protein Today M35.00 - Sjogren syndrome, unspecified, M62.81 - Muscle weakness (generalized), R53.82 - Chronic fatigue, unspecified, R76.8 - Other specified abnormal immunological findings in serum, Z79.899 - Other long chain quiller tender (current) drug therapy Coding Level of Care Code Est Pt Level 4 (55863) Complex EM visit Add On G2211 Diagnoses Chronic fatigue R53.82 Positive MICHAEL (antinuclear antibody) R76.8 Sicca syndrome M35.
[2025-04-26 13:14] VITALS: BP 130/90; PULSE 96; O2SAT 99; BMI 39.4
--- OUTSIDE RECORDS SUMMARY | 2025-04-26 13:43 | XMS_ITS | Encounter Summary ---
Author Organization [employer] [facility] Address [address] [place] [address] [place] [address] Care Team Providers Care Ui Designer Name Role Phone Monique Tenorio Primary Care Provider Unavailable Jazzy Adan Unavailable Unavailable Provider, Not In System Primary Care Provider Un available Encounter Details Date Type Department Care Team (Late st Contact Info) Description 11/18/2022 Abstract [facility] [address] [place] [address] Dental, Provider, DDS Social History Tobacco Use [...] Care Team (Late st Contact Info) Description 05/11/2025 2:00 PM EDT Office Visit [facility] [address] [place] [address] Dany Le documented as of this encounter Procedures Procedure Name Priority Date/Time Associated Diagnosis Comments 13 DO RESIN-BASED COMPOSITE - 2 SURF, POSTERIOR Routine 10/17/2022 12:00 AM EST PROPHYLAXIS - ADULT Routine 10/17/2022 1 2:00 AM EST PERIODIC ORAL EVALUATION - ESTABLISHED PATIENT Routine 10/17/2022 12:00 AM EST documented in this encounter Visit Diagnoses Not on filedocumented in this encounter Care Teams Ui Designer Relationship Specialty Start Date End Date Monique Tenorio FNP PCP - General Family Medicine 02/19/23 11/24/24 Provider, Not In System PCP - General Family Medicine 11/25/24 Jazzy Adan [facility] Health Worker 04/06/23 documented as of this encounter
== END 2025-04-26 13:49 | disposition home or self-care (01) ==
LOC: HO.RHES 12:59
PROVIDERS: PCP Nurse Practitioner Family; Visit Provider Internal Medicine Rheumatology
DX: R53.82 Chronic fatigue, unspecified (principal); R76.8 Other specified abnormal immunological findings in serum; M35.00 Sjogren syndrome, unspecified
CPT/HCPCS: 99214

== ENCOUNTER → 2025-04-26 12:58 | Outpatient (BNVA) | payer OTHER, SELFPAY | PROVIDERS: PCP Nurse Practitioner Family; Visit Provider Internal Medicine Rheumatology ==

== ENCOUNTER 2025-04-27 15:17 | Outpatient (REF) | payer OTHER, SELFPAY ==
--- OUTSIDE RECORDS SUMMARY | 2025-04-27 15:21 | XMS_ITS | Encounter Summary ---
Author Organization [facility] Address [address] [place] [address] [place] [address] Care Team Providers Care Digitizer Name Role Phone Monique Tenorio Primary Care Provider Unavailable Jazzy Adan Unavailable Unavailable Provider, Not In System Primary Care Provider Un available Encounter Details Date Type Department Care Team (Late st Contact Info) Description 11/18/2022 Abstract [facility] [address] [place] [address] Dental, Provider, DDS Social History Tobacco Use [...] 05/11/2025 2:00 PM EDT Office Visit [facility] [address] [place] [address] Dany Le documented as of this encounter Procedures Procedure Name Priority Date/Time Associated Diagnosis Comments 13 DO RESIN-BASED COMPOSITE - 2 SURF, POSTERIOR Routine 10/17/2022 12:00 AM EST PROPHYLAXIS - ADULT Routine 10/17/2022 1 2:00 AM EST PERIODIC ORAL EVALUATION - ESTABLISHED PATIENT Routine 10/17/2022 12:00 AM EST documented in this encounter Visit Diagnoses Not on filedocumented in this encounter Care Teams Digitizer Relationship Specialty Start Date End Date Monique Tenorio FNP PCP - General Family Medicine 02/19/23 11/24/24 Provider, Not In System PCP - General Family Medicine 11/25/24 Jazzy Adan [facility] Health Worker 04/06/23 documented as of this encounter
[2025-04-27 15:36] LABS: MANUAL DIFF FLAG NO
[2025-04-27 15:57] LABS: Basophils Absolute Auto 0.1 X10*3/uL (0.0-0.2); Basophils Percent Auto 0.7 % (0-2); Eosinophils Absolute Auto 0.3 X10*3/uL (0.0-0.4); Hematocrit 41.7 % (37.0-47.0); Hemoglobin 13.8 g/dl (12.0-16.0); Imm Gran Abs Auto 0.02 X10*3/uL (0.00-0.03); Imm Gran Pct Auto 0.3 % (0.0-0.4); Lymphocytes Absolute Auto 2.1 X10*3/uL (1.2-4.9); Lymphocytes Percent Auto 31.8 % (20-40); Mean Corpuscular HGB Conc 33.1 g/dl (31.0-35.0); Mean Corpuscular Hemoglobin 30.6 pg (27.0-33.0); Mean Corpuscular Volume 92.5 fL (80.0-98.0); Mean Platelet Volume 9.8 fL (9.4-12.3); Monocytes Absolute Auto 0.6 X10*3/uL (0.1-1.2); Monocytes Percent Auto 8.3 % (2-11); Neutrophils Absolute Auto 3.7 x10*3/uL (2.0-8.3); Neutrophils Percent Auto 54.9 % (45-73); Platelet Count 357 X10*3/uL (160-400); Red Blood Count 4.51 X10*6/uL (4.20-5.50); Red Cell Distribution Width 12.8 % (11.0-16.0); White Blood Count 6.7 X10*3/uL (4.8-10.8)
[2025-04-27 16:10] LABS: Appearance Urine Cloudy; Color Urine Yellow; Glucose Urine UA Negative (Negative); Leukocyte Esterase Urine Trace (Negative); Nitrite Urine Negative (Negative); PH 5.5 (5.0-9.0); Specific Gravity - Urine 1.015 (1.005-1.025); UMIC TRIGGER UA YES; Urine Blood Negative (Negative); Urine Ketones Trace mg/dL (Negative); Urine Protein Negative (Neg-Trace)
[2025-04-27 16:13] LABS: Bacteria Urine 4+ (None Seen); Hyaline Casts Urine 0-2 /LPF (0-2); RBC Urine 0-2 /HPF (0-2); Squamous Epithelial Cell Urine >20 /HPF (0-2)
[2025-04-27 16:24] LABS: Alanine Aminotransferase 18 U/L (0-31); Aspartate Amino Transferase 21 U/L (5-31); C Reactive Protein 0.52 mg/dL (< or = 0.50); Estimated Glomerular Filt Rate > 60
[2025-04-27 16:34] LABS: Erythrocyte Sedimentation Rate 21 MM/HR (0-20)
[2025-05-02 01:44] LABS: Aldolase 4.3 U/L (<=8.1)
== END 2025-04-27 15:18 | disposition home or self-care (01) ==
LOC: HO.LAB 15:17
PROVIDERS: PCP Nurse Practitioner Family; Visit Provider Internal Medicine Rheumatology
DX: M62.81 Muscle weakness (generalized) (principal); R53.82 Chronic fatigue, unspecified; R76.8 Other specified abnormal immunological findings in serum; M35.00 Sjogren syndrome, unspecified; Z79.899 Other long term (current) drug therapy
CPT/HCPCS: 36415; 81001; 82085; 82550; 82565; 84450; 84460; 85025; 85652; 86140

== ENCOUNTER 2025-05-23 11:30 | Outpatient (RCR) | payer OTHER, SELFPAY ==
--- NOTE | 2025-04-27 15:11 | MHC.OT.EP ---
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 She is concerned in regards to B hand weakness at this time , and reports difficulty performing Fine motor tasks. She was seeing PT (not at [facility]) and was told by her MD to put PT on hold to focus on B hand strengthening. She has a co-morbidity of CFS which affects her ability to exercise and attend therapy. Pt presents today w/ full AROM of her B UE's , mild weakness, and Bouchards/ Herbedens nodes on her digits. Pt would benefit form skilled OT therapy 1 x a week (due to CFS) to focus on increasing strength and functional use of her B hands. Frequency and Duration: The patient will be seen 1x a week for 4 weeks Short Term Goals: SEE BELOW Half-Way Goals: Pt will adhere to her HEP Pt's 9 peg R hand score will improve to 14.5 seconds or less Pt will report using adaptive techniques to open jars w/ out difficulty Pt's L hand top icer will improve to 70 lbs Treatment Plan: Therapeutic Exercise Therapeutic Activity Home Exercise Program Neuro Re-ed Patient Education Paraffin MHP Joint Mobilization Soft Tissue Mobilization Kinesiotaping Electronically Signed By: Fiorella Land OTR/L Please Sign and return to therapist. Thank you once again for your referral.
== END 2025-10-06 10:43 | disposition home or self-care (01) ==
LOC: HO.OT 11:30
PROVIDERS: PCP Nurse Practitioner Family; Visit Provider Internal Medicine Rheumatology
DX: R29.898 Other symptoms and signs involving the musculoskeletal system (principal)
CPT/HCPCS: 97110; 97166; 97530; 97535

== ENCOUNTER 2025-07-27 13:06 | Outpatient (AMB) | payer OTHER, SELFPAY ==
--- OUTSIDE RECORDS SUMMARY | 2023-03-21 13:55 | XMS_ITS | Encounter Summary ---
Author Organization [facility] Address [address] [place] [address] Phone Care Team Providers Care Superintendent Car Construction Name Role Phone Laura Buchanan MD Primary Care Provider [phone] Encounter Details Date Type Department Care Team (Late st Contact Info) Description 03/21/2023 1:55 PM EDT Hospital Encounter [facility] [address] [place] [id number] Aubrie Nails CNP [address] [place] [id number] Social History Tobacco Use Types Packs/Day Years [...] report originally created [employer]. Aubrie Nails B2B OUTSIDE SALES REPRESENTATIVE IMG XR LOWER EXTREMITY Shandra l Result documented in this encounter Visit Diagnoses Not on filedocumented in this encounter Care Teams Superintendent Car Construction Relationship Specialty Start Date End Date Laura Buchanan MD [address] [place] [id number] PCP - General Internal Medicine 11/12/18 documented as of this encounter Additional Source Comments The information contained in this document represents components of the legal health record. It is not the complete legal health record.[facility]
--- NOTE | 2025-07-27 13:12 | MHC.OFFVIS ---
Vital Signs 07/27/25 13:13 Height 5 ft 4 in Weight 228 lb 2.855 oz BMI 39.2 BP 130/80 Blood Pressure Location Lt brachial Position Sitting Pulse 84 Pulse Source Pulse Oximeter Pulse Oximetry (%) 98 Oxygen Delivery Method Room Air Intake Visit Reasons: 3 months Intake Note: Patient presents for follow up on +MICHAEL. Accompanied by: Self / Same As Patient Allergies levofloxacin (From Levaquin) Allergy (Mild, Verified 07/27/25 13:13) achilles pain cinnimon Allergy (Uncoded 01/26/25 08:12) tongue numbness From Augmentin Adverse Reaction (Mild, Uncoded 11/09/24 11:17) VOMITING HPI HPI 3 months: Details: She had minor salivary gland biopsy this week. She had COVID-17 June from her visit to [place]. COVID symptoms lasted a month. She was able to walk 5 miles a day when she was in [place] on a cruise prior to her seeing her family members in [place]. She went to OT and has had relief in hand pain with heating and exercises. Improved pain after typing. She continues to have hand pain. [facility] Family History (Reviewed 01/26/25 @ 08:14 by Batool Mahoney [facility]) Mother Arthritis Maternal Aunt Arthritis Maternal Grandmother Arthritis Paternal Aunt Arthritis Father No problems noted. Physical Exam Vital Signs: Last Vital Signs Pulse 84 07/27/25 13:13 BP 130/80 07/27/25 13:13 Pulse Ox 98 07/27/25 13:13 Oxygen Delivery Method Room Air 07/27/25 13:13 BMI result Body Mass Index 39.2 Const Other: General: Comfortable CVS: RRR Respiratory: clear to auscultation bilaterally. Good respiratory effort Skin: Soft tissue swelling left lower lip MSK: No tenderness of any joints. No synovitis. Normal range of motion of upper extremities and lower extremities. Assessment & Plan Assessment & Plan (1) Chronic fatigue: Comment: History of chronic fatigue syndrome diagnosed in 2005 progressively getting worse. Reported history of elevated inflammatory markers. She has had COVID 3 times since 2022, which is exacerbated fatigue and brain fog. She has a history of chronic dry eyes and dry mouth with recent labs from May revealing high titer positive MICHAEL 1:320 and low titer positive rheumatoid factor. Her clinical presentation and serologies are concerning for Sjogren syndrome. SSA/SSB negative. She had minor salivary gland biopsy this week. Eye exam revealed low tear production in bilateral eyes on Elizabeth's testing but specific values are not given. Labs from March 2025 revealed mild elevation in inflammatory markers in relationship to the normal reference range but when adjusted for her age and sex it falls below her upper limit of normal. Last visit in March she had muscle weakness but her muscle enzymes are normal. Low clinical suspicion for idiopathic inflammatory myositis. She is recently recovering from COVID-19 again 05/2025 lasting a month. Code(s): R53.82 - Chronic fatigue, unspecified Category: Medical Plan: Requesting specific values of Elizabeth's test from Dr. Denisa Chan's office We will follow-up with [facility] for minor salivary gland lip biopsy in 1 week SPEP ordered Return to clinic in 3 months (2) Bilateral hand pain: Comment: Improved with OT. Code(s): M79.641 - Pain in right hand; M79.642 - Pain in left hand Category: Medical Plan: Continue home exercise program learned from OT X-ray bilateral hands ordered Return to clinic in 3 months (3) Positive MICHAEL (antinuclear antibody): Code(s): R76.8 - Other specified abnormal immunological findings in serum Category: Medical Plan: See above (4) Sicca syndrome: Comment: History of sicca symptoms, chronic fatigue, high titer positive MICHAEL 1:320 and low titer rheumatoid factor 14.3. SSA/SSB negative. Inflammatory markers are within age and sex suggested upper limit of normal. She is on Restasis for dry eyes. See plan above. Code(s): M35.00 - Sjogren syndrome, unspecified Category: Medical Plan: See above Orders: Orders Protein Electrophoresis, Serum Today M35.00 - Sjogren syndrome, unspecified, R76.8 - Other specified abnormal immunological findings in serum XR Hand Bilat min 3v Today M79.641 - Pain in right hand, M79.642 - Pain in left hand Coding Level of Care Code Est Pt Level 4 (67342) Complex EM visit Add On G2211 Diagnoses Chronic fatigue R53.82 Bilateral hand pain M79.641; M79.642 Positive MICHAEL (antinuclear antibody) R76.8 Sicca syndrome M35.00
[2025-07-27 13:13] VITALS: BP 130/80; PULSE 84; O2SAT 98; BMI 39.2
--- OUTSIDE RECORDS SUMMARY | 2025-07-27 13:45 | XMS_ITS | Clinical Summary ---
Author Organization [facility] Address [address] [place] [id number] Phone Care Team Providers Care Power Plant Inspector Name Role Phone Laura Buchanan MD Primary Care Provider [phone] Allergies Active Allergy Reactions Criticality Noted Date Comments Amoxicillin-Pot Clavulanate 09/06/20 12 Other reaction(s): nausea and diarrhea Other reaction(s): stomach upset, ok with amox Budesonide-Formoterol Diarrhea 03/17/2023 Erythromycin 09/06/2012 Other reaction(s): nausea (tolerates azithromycin) Other reaction(s): stomach upset, ok with azith Levofloxacin 09/06/2012 Other reaction(s): tendinitis Other reaction(s): achilles tendonitis Nsaids (Non-Steroidal Anti-Inflammatory Drug) 12/22/2022 Other reaction(s): diarrhea Oxycodone Itching 03/17/2023 Oxycodone-Acetaminophen 09/06/2012 Other reaction(s): itching Peanut 12/22/2022 Medications vit B opwr-Y-EW-iron- vit E 500 mg-400 mcg- 18 mg iron Tab as directed Orally Active topiramate (TOPAMAX) 25 MG tablet as directed Active fluticasone propionate (FLONASE) 50 mcg/actuation nasal spray as directed Active digestive 8/L.acidoph/pec tin (DIGESTIVE ENZYME, ACIDOPH,PEC, ORAL) Digestive Enzymes Active cetirizine-pseu doephedrine (ZYRTEC-D) 5-120 mg per tablet 1 tablet Active albuterol 90 mcg/actuation inhaler 2 puffs. 2 Active ascorbic acid, vitamin C, 100 mg Chew Vitamin C Active bacillus coagulans-inuli n 1 billion-250 cell-mg Cap Probiotic Active cromolyn (GASTROCROM) 100 mg/5 mL solution USE 1 VIAL 5 ML) 30 MINUTES BEFORE MEALS AND AT BEDTIME 4 TIMES A DAY TOTAL) 2 Active cycloSPORINE (RESTASIS) 0.05 % suspension INSTILL ONE DROP INTO THE AFFECTED EYE TWICE A DAY 2 Active diphenhydrAMINE (BENADRYL) 25 mg capsule Benadryl Active EPINEPHrine 0.3 mg/0.3 mL auto-injector USE 1 INJECTION DIRECTED NEEDED 2 Active ergocalciferol (DRISDOL) 50,000 unit capsule Take 1.25 mg by mouth. Active estradioL (VAGIFEM) [address] 1 tablet vaginally 2 (two) times a week. 2 Active methocarbamoL (ROBAXIN) 750 MG tablet if needed. 2 Active DULERA 100-5 mcg/actuation HFAA Inhale 2 puffs into the lungs 2 (two) times a day. 3 Active montelukast (SINGULAIR) 10 mg tablet Take 1 tablet by mouth nightly at bedtime. 2 Active omeprazole (PRILOSEC) 20 MG capsule 1 capsule Active phytonadione, vit K1, (PHYTONADIONE, VITAMIN K1,) 100 mcg tablet Take by mouth. Active Active Problems Problem Noted Date Diagnosed Date Depression 03/21/2023 Fatigue 03/21/2023 Migraine without aura and responsive to treatmen t 03/21/2023 Myositis 03/21/2023 Obesity 03/21/2023 Polycystic ovaries 03/21/2023 Immunizations No known immunizations Social History Tobacco Use Types Packs/Day Years Used Date Smoking Tobacco: Never Smokeless Tobacco: Never Tobacco Cessation:Counseling Given: Not Answered Education Answer Date Recorded Are you interested [...] on file Sexual Orientation Not on file Last Filed Vital Signs Vital Sign Reading Time Taken Comments Blood Pressure 130/86 03/21/2023 1:44 PM EDT Pulse 90 03/21/2023 1:44 PM EDT Temperature 36.2 C (97.2 F) 03/21/2023 1:44 PM EDT Respiratory Rate 16 03/21/2023 1:44 PM EDT Oxygen Saturation 98% 03/21/2023 1:44 PM EDT Inhaled Oxygen Concentration - - Weight 102.1 kg (225 lb) 03/21/2023 1:44 PM EDT Height 162.6 cm (5' 4 ) 03/21/2023 1:44 PM EDT Body Mass Index 38.62 03/21/2023 1:44 PM EDT Plan of Treatment Health Maintenance Due Date Last Done Comments LIPID PANEL 1967 DEPRESSION SCREENING 1979 HEPATITIS C SCREENING 1985 HIV ONE-TIME SCREENING (18-65 YEARS) 1985 PAP SMEAR 1988 SMOKING STATUS SCREENING (Once After 26 Yrs) 1993 MAMMOGRAM 2007 COLOGUARD 2012 COLONOSCOPY 2012 COLORECTAL CANCER SCREENING 2012 FIT TEST 2012 FOBT 2012 SIGMOIDOSCOPY 2012 VIRTUAL COLONOSCOPY 2012 SCREENING FOR DIABETES 11/12/2021 11/12/2018 COVID-19 VACCINE ( season) 2024 10/12/2022, 04/14/2022, 10/18/2021, Additional history exists INFLUENZA VACCINE (#1) 2025 , 08/19/2021, 07/27/2020, Additional history exists Adult Td,Tdap Booster 11/09/2032 11/09/2022, 006 ZOSTER VACCINES Completed 11/05/2020, 09/06/2020 PNEUMOCOCCAL VACCINES (50+ years) Completed 11/03/2022 HEPATITIS A VACCINES Aged Out No long er eligible based on patient's age to complete this topic HIB VACCINES Aged Out No longer eligi ble based on patient's age to complete this topic MENINGOCOCCAL VACCINES (ACWY) Aged Out No longer eligible based on patient's age to complete this topic MENINGOCOCCAL VACCINES (B) Aged Out N o longer eligible based on patient's age to complete this topic Medical Devices Not on file Insurance [address] [id number] [facility]MO [facility] H[place] [address] [place] [address] HMO [facility] HMO Care Teams Power Plant Inspector Relationship Specialty Start Date End Date Laura Buchanan MD [address] [place] [id number] PCP - General Internal Medicine 11/12/18 Additional Source Comments The information contained in this document represents components of the legal health record. It is not the complete legal health record.[facility]
== END 2025-07-27 13:55 | disposition home or self-care (01) ==
LOC: HO.RHES 13:07
PROVIDERS: PCP Nurse Practitioner Family; Visit Provider Internal Medicine Rheumatology
DX: R53.82 Chronic fatigue, unspecified (principal); M79.641 Pain in right hand; M79.642 Pain in left hand; R76.8 Other specified abnormal immunological findings in serum; M35.00 Sjogren syndrome, unspecified
CPT/HCPCS: 99214; G2211

== ENCOUNTER 2025-07-27 13:06 | Outpatient (REF) | payer OTHER, SELFPAY ==
--- OUTSIDE RECORDS SUMMARY | 2025-07-27 14:48 | XMS_ITS | Encounter Summary ---
Author Organization [employer] Address [address] [facility] 7 [place] [address] Care Team Providers Care Impregnation Operator Name Role Phone Monique Tenorio Primary Care Provider Unavailable Jazzy Adan Unavailable Unavailable Provider, Not In System Primary Care Provider Un available Reason for Visit * Reason Comments Med Refill Encounter Details Date Type Department Care Team (Late st Contact Info) Description 11/02/[address] [facility] MEDICAL [address] [place] [address] Monique Tenorio FNP Mild persistent asthma in [...] Care Team (Late st Contact Info) Description 11/15/2025 2:00 PM EST Office Visit [facility] DENTAL [address] [place] [address] Dany Le documented as of this encounter Visit Diagnoses Diagnosis Mild persistent asthma in adult without complication- Primary documented in this encounter Care Teams Impregnation Operator Relationship Specialty Start Date End Date Monique Tenorio FNP PCP - General Family Medicine 02/19/23 11/24/24 Provider, Not In System PCP - General Family Medicine 11/25/24 Jazzy Adan Community Health Worker 04/06/23 documented as of this encounter
--- OUTSIDE RECORDS SUMMARY | 2025-07-27 14:48 | XMS_ITS | Clinical Summary ---
Author Organization [employer] Address [address] [place] [address] 7 [place] [address] Care Team Providers Care Loader Name Role Phone Jazzy Adan Unavailable Unavailable Provider, Not In System Primary Care Provider Un available Allergies Active Allergy Reactions Criticality Noted Date Comments Amoxicillin-Pot Clavulanate Low 12/22/2022 Other reaction(s): stomach upset, ok with amox Cinnamon 02/13/2025 Tongue goes numb Erythromycin Low 12/22/2022 Other reaction(s): stomach upset, [...] if needed for wheezing. 18 g 3 05/17/20 23 Active Vagifem 10 MCG tablet vaginal [...] TWO TIMES A DAY 23 g 1 06/29/20 25 Active Azelastine-Flut icasone 137-50 MCG/ACT suspensionIndic ations:Non-seas onal allergic rhinitis, unspecified trigger INSTILL 1 SPRAY INTO AFFECTED NOSTRIL(S) TWO TIMES A DAY 23 g 1 04/11/20 25 025 Discontinued Active Problems Problem Noted Date [...] Encounters Date Type Department Care Team Description 06/29/2025 Refill [facility] MEDICAL [address] [place] [id number] Claire Solis DO Non-seasonal allergic rhinitis, unspecified trigger 05/11/2025 2:00 PM EDT Office Visit [facility] DENTAL [address] [place] [address] Dany Le Stage 2 grade B generalized periodontitis per AAP/EFP 2017 classification (Primary Dx); Dental calculus; Encounter for dental examination 04/26/2025 Telephone [facility] MEDICAL [address] [place] [phone] Provider, Not In System Care Coordination from Last 3 Months Immunizations Immunization Administration Dates Next Due Influenza Injectable Quadriv alant Preservative Free IIV4 MDCK 11/03/2022,08/19/2021 Influenza injectable quadriv alent IIV4 with preservative 10/14/2019 Influenza injectable quadriv alent preservative free 12/18/2023,07/25/2020 Influenza, IIV3, injectable 07/27/2020,1 ,09/20/2010,08/23,10/23/2008 Influenza, Split (incl. americo fied surface antigen) 09/20/2010 Novel Lkkatjurh-[id number], all formulations 11/13/2009 PPD Test 12/14/2007 Pneumococcal Conjugate PCV 20 11/03/2022 Rabies, intramuscular 07/06/2012, 012,06/26/2012,06/23 TD (adult), 2 Lf tetanus tox oid, preservative free, adsorbed 11/18/2006 Tdap 11/09/2022 Zoster, Recombinant 11/05/2020,09/06/2020 Social History Tobacco Use Types Packs/Day Years Used Date Smoking Tobacco: Never Smokeless Tobacco: Never Tobacco Cessation:Counseling Given: Not Answered Alcohol Use Standard Drinks/Week Comments Not Currently 0 (1 standard drink = 0.6 oz [...] Master's degree (e.g., MA, MS, Michel, MEd, AIRCRAFT DISPATCHER, MISHA) 07/22/2023 Comments Unknown Sex and Gender [...] Sign Reading Time Taken Comments Blood Pressure 134/98 05/11/2025 2:13 PM EDT Pulse 104 05/11/2025 2:13 PM EDT Temperature 36.2 C (97.1 F) 06/29/2024 8:34 AM EDT Respiratory Rate 16 04/27/2024 4:23 PM EDT [...] Description 11/15/2025 2:00 PM EST Office Visit [facility] DENTAL [address] [place] [address] Dany Le Health Maintenance Due Date Last Done Comments CT Colonography 1967 FIT DNA/Cologuard 1967 FIT 1967 FOBT 1965 Sigmoidoscopy 1965 Disability Screening 1965 Alcohol/Substance Use Screening 1979 Hepatitis A Vaccines (1 of 2 - Risk 2-dose series) 1986 Hepatitis B Vaccines (1 of 3 - 19+ 3-dose series) 1986 Cervical Cancer Screening 06/29/2024 HPV/Cotest 06/29/2024 06/29/2023, 02/20/2022 Pap Smear 06/29/2024 06/29/2023, 02/20/2022 SDOH Screening 06/29/2024 06/29/2023 Diabetes: Hemoglobin A1C 07/15/2024 023, 02/12/2022, 02/12/2022, Additional history exists Depression Monitoring 10/28/2024 04/27/2024, 024 Dental X-Ray: Full Mouth 11/02/2024 11/01/2021, 07/01 Influenza Vaccine (#1) 2025 , 12/18/2023, 11/03/2022, Additional history exists Dental Oral Exam 11/11/2025 05/11/2025, 01/2024, 01/04/2024, Additional history exists Dental Prophylaxis 11/11/2025 05/11/2025, 1 01/02/2024, 01/04/2024, Additional history exists Tobacco Screening 05/11/2026 05/11/2025 Dental X-Ray: Bitewings 05/12/2026 05/11/20 25, 01/04/2024, 11/01/2021, Additional history exists Mammogram 07/11/2026 07/11/2024, 06/30, 09/11/2021, Additional history [...] Completed 06/08/2024 Hepatitis C Screening Completed 06/08/2024 COVID-19 Vaccine Completed 10/14/2024, , 04/14/2022, Additional history exists HIB Vaccines Aged Out No longer eligi ble based on patient's age to complete this topic HPV Vaccines Aged Out No longer eligi ble based on patient's age to complete this topic IPV Vaccines Aged Out No longer eligi ble based on patient's age to complete this topic Meningococcal B Vaccine Aged Out No l onger eligible based on patient's age to complete [...] Procedure Name Priority Date/Time Associated Diagnosis Comments ORAL HYGIENE INSTRUCTIONS Routine 05/11/2025 2:00 PM EDT BITEWINGS - 4 RADIOGRAPHIC IMAGES Routine 05/11/2025 2:00 PM EDT Full PROPHYLAXIS - ADULT Routine 05/11/2025 2:00 PM EDT PERIODIC ORAL EVALUATION - ESTABLISHED PATIENT Routine 05/11/2025 2:00 PM EDT BI MAMMOGRAM SCREENING TOMOSYNTHESIS BILATERAL Routine 07/11/2024 8:45 AM EDT HEPATITIS C VIRAL RNA, QN REAL TIME PCR W/REFLS Routine 06/08/2024 3:08 PM EDT Need for hepatitis C screening test HIV P24 ANTIGEN/ANTIBODY WITH REFLEX TO CONFIRMATION Routine 06/08/2024 3:08 PM EDT Encounter for screening for HIV LIPID PANEL, STANDARD Routine 06/08/2024 3:08 PM EDT Elevated LDL cholesterol level HEMOGLOBIN A1C Routine 07/15/2023 9:10 AM EDT Pre-diabetes PAP, LB WITH CT/GC AND HPV Routine 06/29/2023 4:14 PM EDT INTRAORAL - COMPLETE SERIES OF RADIOGRAPHIC IMAGES Routine 11/01/2021 12:00 AM EST HM COLONOSCOPY Routine 11/17/2018 from Last 3 Months or Most Recently Relevant to Health Maintenance Results * BI Mammogram Screening Tomosynthesis Bilateral (07/11/2024 8:45 AM EDT) Anatomical Region Laterality Modality Breast Bilateral Mammography 07/11/2024 8:45 AM EDT Narrative 07/11/2024 4:52 PM EDT PROCEDURE: MM Digital Mammo Screening INDICATION: Screening for breast cancer. No known palpable abnormalities. COMPARISON: Back to 05/12/2019. [...] (Negative) Lay letter mailed to patient WSN: [id number] Ordering Physician: Hallie Bass Dictated By: Migue Cherry MD Dictated Date/Time: 07/11/24 4:11 pm Reviewed By: Migue Cherry MD Signed By: Migue Cherry MD Signed Date/Time: 07/11/24 4:11 pm Transcribed By: BOB Clerk Date/Time: 07/11/24 4:06 pm Birads: Procedure Note Donotuseinterpreter, [...] (Negative) Lay letter mailed to patient WSN: [id number] Ordering Physician: Hallie Bass Dictated By: Migue Cherry MD Dictated Date/Time: 07/11/24 4:11 pm Reviewed By: Migue Cherry MD Signed By: Migue Cherry MD Signed Date/Time: 07/11/24 4:11 pm Transcribed By: CSDiann Clerk Date/Time: 07/11/24 4:06 pm Birads: us Hallie [...] - 06/11/2024 4:05 PM EDT Performed at: [address] [place] [id number] Materials Coordinator: Glenda Soriano MD, Phone: [phone] Monique Tenorio [facility] LAB BLOOD ORDERABLES E dited Result - Final [facility] 1 * HIV p24 Antigen/Antibody With Reflex to Confirmation (06/08/2024 3:08 PM EDT) HIV Ab/p24 Ag Screen Non Reactive Non Reactive [facility] 1 Comment: HIV Negative HIV-1/HIV-2 antibodies and HIV-1 p24 antigen were NOT detected. There is no laboratory evidence of HIV infection. Blood Venous blood specimen / Unknown 06/08/2024 3:08 PM EDT 06/08/2024 Narrative [facility] 1 - 06/10/2024 8:08 AM EDT Performed at: - [facility] [address] [id number] Materials Coordinator: Carrie Bazzi MD, Phone: [phone] [facility] LAB BLOOD ORDERABLES F inal Result Performing Organization Address City/[facility]/ZIP Co de Phone Number [facility] 1 * [...] - 06/09/2024 8:08 AM EDT Performed at: - [facility] [address] [id number] Materials Coordinator: Carrie Bazzi MD, Phone: [phone] [facility] LAB BLOOD ORDERABLES F inal Result Performing Organization Address City/[facility] Co de Phone Number [facility] 1 * (ABNORMAL) Hemoglobin A1c (07/15/2023 9:10 AM EDT) Hemoglobin A1C 5.7(H) (4.0-5.6) % [facility] Comment: MONITORING: In known diabetic patients, hemoglobin A1c targets should be discussed with health care provider. DIAGNOSTIC USE: The [place] Diabetes Association (ADA) and the World Health [...] Supplement 1 Testing performed or reported by [facility], a Service of [facility], [address] [place] [address] Jaya Jordan MD, Molecular Spectroscopist [facility]# [id number] Blood Venous blood specimen / Unknown 07/15/2023 9:10 AM EDT 07/15/2023 9:12 AM EDT Monique Tenorio [facility] LAB BLOOD ORDERABLES F inal Result [facility] [address] [place] [phone] * PAP, LB with CT/GC and HPV (06/29/2023 4:14 PM EDT) PAP, LB WITH CT/GC AND HPV Patient Name: KEREN KAYE [facility] Comment: Patient : 1965 (Age: 57) Lab Collection Date: 06/29/2023 Accession Date: 06/29/2023 Sign Out Date: 07/02/2023 Tissue Source: 1: THINPREP FINISHING TUNNEL OPERATOR PAP TEST, CERVICAL: Final Diagnosis: NEGATIVE FOR INTRAEPITHELIAL LESION OR MALIGNANCY. Satisfactory for evaluation. Endocervical/transformation zone present. Procedures/Addenda: Human Papilloma Virus, High-Risk (Any Dx) Status: Signed Out Interpretation: Negative Methodology: [employer] Aptima HPV mRNA assay (Nucleic Acid Amplification Test, NAAT). Clinical History: Date of Last Menstrual Period: not available Menstrual History: not available Contraceptive History: not available Ancillary Testing: HPV (any dx) Chlamydia/GC Case imaged by the ThinPrep Imaging System with manual rescreening or review. Clinical History (other): z12.4, due for 1 year f/u Phone #: [phone], On-Call Pathologist: [id number] Testing performed or reported by [facility], a Service of [facility], [address] [place] [address] Jaya Jordan MD, Molecular Spectroscopist CLIA# [id number] 06/29/2023 4:14 PM EDT 06/29/2023 6:52 PM EDT Monique Tenorio [facility] CYTOLOGY ORDERABLE S Final Result [facility] [address] [place] [phone] * (ABNORMAL) Colonoscopy (11/17/2018) Colonoscopy Abnormal( A) Normal Comment:Gastritis, hiatal he rnia Historical Provider HEALTH MAINTENANCE Final Result from Last 3 Months or Most Recently Relevant to Health Maintenance Insurance [facility] , [address] [place] [address] DENTAL - [facility] , [address] [place] [address] Care Teams Loader Relationship Specialty Start Date End Date Provider, Not In System PCP - General Family Medicine 11/25/24 Jazzy Adan Community Health Worker 04/06/23
--- OUTSIDE RECORDS SUMMARY | 2025-07-27 14:48 | XMS_ITS | Encounter Summary ---
Author Organization [employer] [facility] Address [address] [place] [address] [place] [address] Care Team Providers Care Quill Collector Name Role Phone Monique Tenorio Primary Care Provider Unavailable Jazzy Adan Unavailable Unavailable Provider, Not In System Primary Care Provider Un available Encounter Details Date Type Department Care Team (Late st Contact Info) Description 11/18/2022 [place] [facility] Dental [address] [place] [address] Dental, Provider, DDS Social History Tobacco Use [...] Description 11/15/2025 2:00 PM EST Office Visit [place] [facility] DENTAL [address] [place] [address] Dany Le documented as of this encounter Procedures Procedure Name Priority Date/Time Associated Diagnosis Comments 13 DO RESIN-BASED COMPOSITE - 2 SURF, POSTERIOR Routine 10/17/2022 12:00 AM EST PROPHYLAXIS - ADULT Routine 10/17/2022 1 2:00 AM EST PERIODIC ORAL EVALUATION - ESTABLISHED PATIENT Routine 10/17/2022 12:00 AM EST documented in this encounter Visit Diagnoses Not on filedocumented in this encounter Care Teams Quill Collector Relationship Specialty Start Date End Date Monique Tenorio FNP PCP - General Family Medicine 02/19/23 11/24/24 Provider, Not In System PCP - General Family Medicine 11/25/24 Jazzy Adan [facility] Health Worker 04/06/23 documented as of this encounter
[2025-07-28 22:28] LABS: Prot Elec - Albumin 4.1 g/dL (3.8-4.8); Prot Elec - Alpha1 0.3 g/dL (0.2-0.3); Prot Elec - Alpha2 0.7 g/dL (0.5-0.9); Prot Elec - Beta 1 0.4 g/dL (0.4-0.6); Prot Elec - Beta 2 0.4 g/dL (0.2-0.5); Prot Elec - Gamma 1.4 g/dL (0.8-1.7); Prot Elec - Total Protein 7.3 g/dL (6.1-8.1)
== END 2025-07-27 13:07 | disposition home or self-care (01) ==
LOC: HO.HKASLDS 13:06
PROVIDERS: PCP Nurse Practitioner Family; Visit Provider Internal Medicine Rheumatology
DX: M35.00 Sjogren syndrome, unspecified (principal); R53.82 Chronic fatigue, unspecified; M79.641 Pain in right hand; M79.642 Pain in left hand; R76.8 Other specified abnormal immunological findings in serum
CPT/HCPCS: 36415; 84165

== ENCOUNTER 2025-11-14 13:07 | Outpatient (AMB) | payer OTHER, SELFPAY ==
--- OUTSIDE RECORDS SUMMARY | 2023-03-21 12:55 | XMS_ITS | Encounter Summary ---
Author Organization [facility] Address [address] [place] [address] Phone Care Team Providers Care Medical Assembly Name Role Phone Laura Buchanan MD Primary Care Provider [phone] Encounter Details Date Type Department Care Team (Late st Contact Info) Description 03/21/2023 1:55 PM EDT Hospital Encounter [facility] [address] [place] [id number] Aubrie Nails CNP [address] [place] [id number] [email or web address] Social History Tobacco Use Types Packs/Day Years Used Date Smoking Tobacco: Never Smokeless Tobacco: Never Education Answer Date Recorded Are you interested in more education? Not on ugo e 03/27/2023 Are you concerned about learning? Not on file 03/27/2023 No 03/27/2023 No 03/27/2023 Digital Access Answer Date Recorded No 04/27/2023 No 04/27/2023 Reliable internet access at home? Not on file 04/27/2023 Device with a working camera? Not on file Comments Unknown Sex and Gender Information Value Date Recorded Sex Assigned at Not on file Legal Sex Female 9:38 PM EDT Gender Identity Not on file Sexual Orientation Not on file documented as of this encounter Plan of Treatment Not on file documented as of this encounter Procedures Procedure Name Priority Date/Time Associated Diagnosis Comments XR ANKLE 3 OR MORE VIEWS (RIGHT) Urgent/patient waiting 03/21/2023 2:10 PM EDT Right ankle strain, initial encounter documented in this encounter Results * XR ANKLE 3 OR MORE VIEWS (RIGHT) (03/21/2023 2:10 PM EDT) Anatomical Region Laterality Modality Ankle Right Computed Radiogr aphy 03/21/2023 2:51 PM EDT Impressions 03/21/2023 2:58 PM EDT No fracture or dislocation. ATTESTATION: Daren Garcia as teaching physician, have reviewed the images for this case and if necessary edited the report originally created by [employer]. Narrative 03/21/2023 2:58 PM EDT XR ANKLE 3 OR MORE VIEWS (RIGHT) COMPARISON: None FINDINGS: No fracture. Normal alignment. Symmetric ankle mortise. Normal joint spaces. No ankle effusion. No focal soft tissue abnormalities. Plantar calcaneal spur. Procedure Note Daren French MD - 03/21/2023 XR ANKLE 3 OR MORE VIEWS (RIGHT) COMPARISON: None FINDINGS: No fracture. Normal alignment. Symmetric ankle mortise. Normal jointspaces. No ankle effusion. No focal soft tissue abnormalities. Plantar calcaneal spur. IMPRESSION: No fracture or dislocation. ATTESTATION: Daren Garcia as teaching physician, have reviewed the imagesfor this case and if necessary edited the report originally created by[employer]. Aubrie Nails WAGE HAND IMG XR LOWER EXTREMITY Shandra l Result documented in this encounter Visit Diagnoses Not on filedocumented in this encounter Care Teams Medical Assembly Relationship Specialty Start Date End Date Laura Buchanan MD [email or web address] PCP - General Internal Medicine 11/12/18 documented as of this encounter Additional Source Comments The information contained in this document represents components of the legal health record. It is not the complete legal health record.[facility]
--- NOTE | 2025-11-14 13:09 | A.OFFVIS_ITS ---
Vital Signs 11/14/25 13:10 Height 5 ft 4 in Weight 227 lb 1.218 oz BMI 39.0 BP 120/90 H Blood Pressure Location Lt brachial Position Sitting Pulse 93 Pulse Source Pulse Oximeter Pulse Oximetry (%) 98 Oxygen Delivery Method Room Air Intake Visit Reasons: 3months Intake Note: Patient presents for follow up on +MICHAEL. Accompanied by: Self / Same As Patient Allergies levofloxacin (From Levaquin) Allergy (Mild, Verified 11/14/25 13:10) achilles pain cinnimon Allergy (Uncoded 01/26/25 08:12) tongue numbness From Augmentin Adverse Reaction (Mild, Uncoded 11/09/24 11:17) VOMITING HPI HPI 3months: Details: Walking 5 miles a day. She feels well. She was recently seen by laborer starch factory who confirmed that she had positive Elizabeth's testing. She had minor salivary gland biopsy that was negative. She had COVID-19 twice this year. Last infection was May. She reacts to COVID-19 vaccines. [facility] Family History Mother Arthritis Maternal Aunt Arthritis Maternal Grandmother Arthritis Paternal Aunt Arthritis Father No problems noted. Physical Exam Vital Signs: Last Vital Signs Pulse 93 11/14/25 13:10 BP 120/90 H 11/14/25 13:10 Pulse Ox 98 11/14/25 13:10 Oxygen Delivery Method Room Air 11/14/25 13:10 BMI result Body Mass Index 39.0 Const Other: General: Comfortable Skin: No lesions. MSK: No tenderness of any joints. No synovitis. Good cotton washer strength. Assessment & Plan Assessment & Plan (1) Chronic fatigue: Comment: History of chronic fatigue syndrome diagnosed in 2005 progressively getting worse. Reported history of elevated inflammatory markers. She has had COVID 3 times since 2022, which is exacerbated fatigue and brain fog. She has a history of chronic dry eyes and dry mouth with recent labs from May revealing high titer positive MICHAEL 1:320 and low titer positive rheumatoid factor. SSA/SSB negative. She had minor salivary gland biopsy that was negative per patient. Eye exam revealed low tear production in bilateral eyes on Elizabeth's testing but specific values are not given. We discuss that since the minor salivary gland biopsy was negative, she does not have Sjogren syndrome. Low clinical suspicion for connective tissue disease at this time. She has cyclic episodes of fatigue and myalgias that are induced with physical and mental stress. 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 Code(s): R53.82 - Chronic fatigue, unspecified Category: Medical Plan: No further rheumatological testing is required at this time Continue home exercise program If she has an episode of fatigue and myalgias, I recommend PCP follow-up for evaluation with consideration of fibromyalgia as a cause for her pain Consider consultation with legal practice manager for consideration of pretreatment before she is given COVID-19 vaccine to prevent infection as she has had debilitating course with COVID-19 infections Requesting minor salivary gland biopsy results (2) Bilateral hand pain: Comment: Improved with OT. She is compliant with home exercise program. Code(s): M79.641 - Pain in right hand; M79.642 - Pain in left hand Category: Medical Plan: Continue home exercise program learned from OT Return to clinic PRN (3) Positive MICHAEL (antinuclear antibody): Code(s): R76.8 - Other specified abnormal immunological findings in serum Category: Medical Plan: See above (4) Sicca syndrome: Comment: History of sicca symptoms, chronic fatigue, high titer positive MICHAEL 1:320 and low titer rheumatoid factor 14.3. SSA/SSB negative. Negative minor salivary gland biopsy. Inflammatory markers are within age and sex suggested upper limit of normal. She is on Restasis for dry eyes. See plan above. Code(s): M35.00 - Sjogren syndrome, unspecified Category: Medical Plan: See above Coding Level of Care Code Est Pt Level 3 (40540) Add On Problem Visit Only Diagnoses Chronic fatigue R53.82 Bilateral hand pain M79.641; M79.642 Positive MICHAEL (antinuclear antibody) R76.8 Sicca syndrome M35.00
[2025-11-14 13:10] VITALS: BP 120/90; PULSE 93; O2SAT 98; BMI 39.0
--- OUTSIDE RECORDS SUMMARY | 2025-11-14 17:06 | XMS_ITS | Encounter Summary ---
Author Organization [employer] Address [address] [facility] 7 [place] [address] Care Team Providers Care Water Filter Cleaner Name Role Phone Jazzy Adan Unavailable Unavailable Valery Stein MD Primary Care Provider [phone] Reason for Visit * Reason Comments Med Refill Encounter Details Date Type Department Care Team (Late st Contact Info) Description 11/11/2025 Refill [place] [facility] MEDICAL [address] [place] [address] Claire Solis DO [address] [place] [address] Non-seasonal allergic rhinitis, unspecified trigger Social History Tobacco Use Types Packs/Day Years Used Date Smoking Tobacco: Never Smokeless Tobacco: Never Alcohol Use Standard Drinks/Week Comments Not Currently [...] degree you have received? Master's degree (e.g., [employer], MS, Michel, MEd, ELECTRIFIER OPERATOR, MISHA) 07/22/2023 Comments Unknown Sex and Gender Information Value Date Recorded Sex Assigned at Female 12/22/2022 11:00 AM EST Legal Sex Female 5:35 PM EDT Gender Identity Female 12/22/2022 11:00 AM EST Sexual Orientation Straight 12/22/2022 11 :00 AM EST 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 on file Not on file documented as of this encounter Miscellaneous Notes * Telephone Encounter - Dg Handy CMA - 11/13/2025 9:42 AM EST We are not the prescribing provider for this medication. documented in this encounter Plan of Treatment Upcoming Encounters Date Type Department Care Team (Late st Contact Info) Description 11/15/2025 2:00 PM EST Office Visit [facility] DENTAL [address] [place] [address] Dany Le documented as of this encounter Visit Diagnoses Diagnosis Non-seasonal allergic rhinitis, unspecified trigger documented in this encounter Additional Health Concerns Assessment Noted Time PHQ-9 Depression Total Score: 12 024 4:32 PM EDT documented as of this encounter Care Teams Water Filter Cleaner Relationship Specialty Start Date End Date Valery Stein MD [address] [place], [place] [phone] PCP - General Internal Medicine 08/29/25 [place], Jazzy Community Health Worker 04/06/23 documented as of this encounter
--- OUTSIDE RECORDS SUMMARY | 2025-11-14 17:06 | XMS_ITS | Data Portability ---
Author Organization [place] [facility], Allergy Address [address] [address] Care Team Providers Care Circular Ripsaw Operator Name Role Phone MARCELINA PEMBERTON Primary Care Provider Assessment Encounter Date Assessment Date Assessment LastModified by Organization Details LastModified Time 07/25/2025 07/25/2025 59-year-old female presents for evaluation of Sjogren's. Given clinical history a minor salivary gland biopsy was performed today. Patient tolerated procedure well. When results are available we will forward them to her paste thinner for further evaluation. She will return in 1 week to ensure proper healing. All questions were answered. Extensive time was spent counselling regarding the biopsy and post procedure expectations. [email or web address] Not available 07/25/2025 13:01:03 08/01/2025 08/01/2025 Pleasant 59-year-old female presents following minor salivary gland biopsy with Dr. Raygoza. Biopsy was negative for inflammatory or autoimmune process (Sjogren's). No acute concerns today and left lip incision is healing well. Patient reports significant improvement in xerostomia after switching from Zyrtec-D to regular Zyrtec. Patient will contact office via phone or patient portal if she develops pain or worsening swelling at incision site. Recommend follow up as needed. [email or web address] Not available 08/01/2025 13:47:37 Plan of Treatment Reminders Order Date Submit Date Provider Last Modified By Organization Details Last Modified Time Details Appointments None record ed. Lab None record ed. Referral None record ed. Procedures None record ed. Surgeries None record ed. Imaging None record ed. Medication Orders None record ed. Patient TargetsNo targets recorded. Patient InstructionsNo instructions recorded. Reason for Referral None Reported. Results Created Date Observation Date Name Description Value Unit Range Abnormal Flag Note LastModifiedBy Organization Detail LastModifiedTime Result Notes None recorded. Problems Name Problem SNOMED Code Status Onset Date Resolution Date Notes Provider Name and Address Organization Details Recorded Time Uncomplica leon asthma 239646245 Active 2020 Asthma NOS; Note: Date Diagnosed : 07/17/2021 3:43 PM (J45.909) Not Available [facility] 4 02:37:45 Allergic rhinitis caused by pollen 85999076 Active 2020 Allergic rhinitis due to pollen; Note: Date Diagnosed : 07/17/2021 3:43 PM (J30.1) Not Available [facility] 4 02:37:38 Xerostomia 43585043 Active 2024 GRECIA MAC PA-C [address] [place] [address],[place] [address], [place], [address] , [facility] - [facility] 5 12:09:52 Problem Notes None recorded. Procedures Surgical History Date Name Laterality Status Provider Name and Address Organization Details Recorded Time 5 Minor salivary gland biopsy_JMS completed GRECIA MAC PA-C [address] [place] [address],[place] [address], [place], [address], [facility] 07/25/2025 12:08:49 Imaging Results None recorded. Procedure Notes None recorded. Medical Equipment None Reported. Allergies Allergen ID Allergen Name Allergen Category Reaction Reaction Severity Criticality Documentation Date Start Date Code Code System Note Provider Name and Address Organization Details Recorded Time 349497 cilantro extract food anaphylax is Not available Not available 04/12/2024 70805 7 RxNorm React ion: shock ;; Not Available [facility] 4 01:09:15 670962 Augmentin medicatio n nausea Not available Not available 04/12/2024 64247 2 RxNorm React ion: other react ion, GI upset ; Not Available [facility] 4 01:09:16 Medications Name Sig Start Date Stop Date Status Note LastModified by Organization Details LastModified Time cromolyn 100 mg/5 mL oral concentra te 07/25 completed Medicati on ID: [id number] B rand Name: cromolyn Send Method: E-Prescr ibed Sub s Allowed: subs OK Speci al Instruct ion: ONE VIAL (5 ML) 30 MINUTES BEFORE A MEAL AND AT BEDTIME TWICE A DAY Medi cationGe nericNam e: cromolyn Not Available Not Available Not Available trazodone 50 mg tablet 10/16 completed Medicati on ID: [id number] B rand Name: trazodon e Send Method: E-Prescr ibed Sub s Allowed: subs OK Medic ationGen ericName : trazodon e Not Available Not Available Not Available doxycycli ne monohydra te 100 mg tablet TAKE ONE TABLET BY MOUTH TWICE A DAY 07/25 completed Not Available Not Available Not Available methocarb glenn 750 mg tablet TAKE ONE TABLET BY MOUTH THREE TIMES A DAY NEEDED FOR MUSCLE SPASM 07/25 completed Not Available Not Available Not Available triamcino lone acetonide 0.1 % topical ointment APPLY TWO TIMES A DAY FOR 14 DAYS active Not Available Not Available No t Available budesonid e 0.5 mg/2 mL suspensio n for nebulizat ion INHALE 1 VIAL 2 ML) VIA NEBULIZE R TWICE A DAY active Not Available Not Available No t Available monteluka st 10 mg tablet TAKE ONE TABLET BY MOUTH AT BEDTIME 07/25 completed Not Available Not Available Not Available epinephri ne 0.3 mg/0.3 mL injection , auto-inje ctor USE 1 INJECTIO N DIRECTED NEEDED active Not Available Not Available No t Available albuterol sulfate HFA 90 mcg/actua tion aerosol inhaler INHALE 1 PUFF INTO THE LUNGS EVERY 6 HOURS active Not Available Not Available No t Available Benadryl 25 mg capsule 2020 active Medicati on ID: [id number] B rand Name: Benadryl Send Method: E-Prescr ibed Sub s Allowed: subs OK Medic ationGen ericName : Benadryl Not Available Not Available Not Available Restasis 0.05 % eye drops in a dropperet te ADMINIST ER 1 DROP INTO BOTH EYES TWO TIMES A DAY active Not Available Not Available No t Available Pepcid 08/11 completed Medicati on ID: [id number] B rand Name: Pepcid S end Method: E-Prescr ibed Sub s Allowed: subs OK Medic ationGen ericName : Pepcid Not Available Not Available Not Available estradiol 10 mcg vaginal tablet INSERT 1 TABLET VAGINALL Y TWICE A WEEK 07/25 completed Not Available Not Available Not Available Zyrtec 10 mg capsule 2020 active Medicati on ID: [id number] B rand Name: Zyrtec S end Method: E-Prescr ibed Sub s Allowed: subs OK Medic ationGen ericName : Zyrtec Not Available Not Available Not Available Dulera 200 mcg-5 mcg/actua tion HFA aerosol inhaler 07/25 completed Medicati on ID: [id number] B rand Name: Dulera S end Method: E-Prescr ibed Sub s Allowed: subs OK Medic ationGen ericName : Dulera Not Available Not Available Not Available azelastin e 137 mcg-fluti casone 50 mcg/spray nasal spray INSTILL 1 SPRAY INTO AFFECTED NOSTRIL S) TWO TIMES A DAY active Not Available Not Available No t Available Breo Ellipta 100 mcg-25 mcg/dose powder for inhalatio n INHALE 1 PUFF INTO THE LUNGS EVERY MORNING active Not Available Not Available No t Available Paxlovid 300 mg (150 mg x 2)-100 mg tablets in a dose pack TAKE 150 MG NIRMATRE LVIR TWO 150 MG TABLET) AND 100 MG RITONAVI R ONE 100 MG TABLET), TAKING BOTH TABLETS TOGETHER , ORALLY TWICE DAILY FOR 07/25 completed Not Available Not Available Not Available Vitals Date Recorded Body height Body mass index (BMI) Body weight Provider Name and Address Organization Details Last Updated DateTime 07/25/2025 162.56 cm 39.5 kg/m2 792458.25 g YANG BRITO [place] [facility] 07/25/2025 10:59:28 Date Recorded Body height Body mass index (BMI) Body weight Provider Name and Address Organization Details Last Updated DateTime 08/01/2025 162.56 cm 39.5 kg/m2 638076.25 g Aubrie Yoder [place] [facility] 08/01/2025 13:11:44 Social History None recorded. Functional Status None recorded. Mental Status None recorded. Family History Nothing Reported. Medical History No medical history recorded. Gynecological HistoryNo gynecological history recorded. Obstetrics History GPAL:G 0 P 0 0 0 0 Past Encounters Encounter ID Performer Location Encounter Start Date Encounter Closed Date Diagnosis/Indication Diagnosis SNOMED-CT Code Diagnosis ICD10 Code Diagnosis IMO Codes Diagnosis Note [id number] NATY RAYGOZA MD [facility] [address] [address] 07/25/2025 10:42:43 07/25/2025 11:43:34 Xerostomia 43506398 R68.2 8024 [id number] MARCELLUS YEH PA-C [facility] [address] [address] 08/01/2025 13:02:49 08/01/2025 13:17:40 Xerostomia 18013878 R68.2 8024 Health Concerns Section Related Observation LastModified by Organization Detai ls LastModified Time None Recorded Concern Status LastModified by Organization Details LastModified Time None Recorded Advance Directives Directive None Recorded Payers Insurance Date Sequence Insurance Name Policy Number Policy Nevarez Covered Member ID Nevarez Member ID Guarantor Name 07/31/[address] [place] [address] [id number] Keren Burrell [id number] Keren Burrell Notes Date Note Type Note Provider Name and Address Organization Details Recorded Time 07/25/2025 text/html ROS as noted in the [facility] 59-year-old female presents for evaluation of possible Sjogren's disease. She is followed by rheumatology and has several other autoimmune conditions. She has been evaluated for Sjogren's and had lab work suspicious for but not diagnostic of Sjogren's. She also has significant dry eye along with dry mouth. It was suggested that she see ENT for minor salivary gland biopsy. NATY RAYGOZA MD [address] [place] [address], [place], [address], [facility] 07/26/2025 08:13:56 08/01/2025 text/html ROS as noted in the [facility] 59-year-old female presents for incision check after minor salivary gland biopsy. Biopsy was negative for inflammatory or autoimmune process (Sjogren's). She is followed by rheumatology for multiple autoimmune conditions. No acute concerns today. TOREY MARIE MD [address] [place] [address], [place], [address], [place] [facility] 08/01/2025 17:22:24 OBGyn Episode No OBEpisode recorded.
--- OUTSIDE RECORDS SUMMARY | 2025-11-14 17:06 | XMS_ITS | Encounter Summary ---
Author Organization [employer] Address [address] [place] [address] Care Team Providers Care Geotechnicial Properties Technician Name Role Phone LocoJellyJazzy Unavailable Unavailable Valery Stein MD Primary Care Provider [phone] Encounter Details Date Type Department Care Team (Latest Contact Info) Description 11/12/2025 Travel Social History Tobacco Use Types Packs/Day Years [...] your housing situation today? I have bulmaro riuz 09/28/[address] you li [...] Master's degree (e.g., UBALDO, MS, Michel, MEd, SALESFORCE BUSINESS ANALYST, MISHA) 07/22/2023 Comments Unknown Sex and Gender [...] Description 11/15/2025 2:00 PM EST Office Visit [facility] DENTAL [address] [place] [address] Dany Le documented as of this encounter Visit Diagnoses Not on filedocumented in this encounter Additional Health Concerns Assessment Noted Time PHQ-9 Depression Total Score: 12 024 4:32 PM EDT documented as of this encounter Care Teams Geotechnicial Properties Technician Relationship Specialty Start Date End Date Valery Stein MD [address] [place] [address] [phone] PCP - General Internal Medicine 08/29/25 Jazzy Adan Community Health Worker 04/06/23 documented as of this encounter
--- OUTSIDE RECORDS SUMMARY | 2025-11-14 17:06 | XMS_ITS | Encounter Summary ---
Author Organization [employer] Address [address] [facility] 7 [place] [address] Care Team Providers Care Electricians Top Helper Name Role Phone Monique Tenorio Primary Care Provider Unavailable Jazzy Adan Unavailable Provider, Not In System Primary Care Provider Un available Valery Stein MD Primary Care Provider [phone] Reason for Visit * Reason Comments Med Refill Encounter Details Date Type Department Care Team (Late st Contact Info) Description 11/02/2022 Refill [facility] MED[facility] [address] [place] [address] Monique Tenorio FNP Mild persistent asthma in [...] Description 11/15/2025 2:00 PM EST Office Visit [facility] DENTAL [address] [place] [address] Dany Le documented as of this encounter Visit Diagnoses Diagnosis Mild persistent asthma in adult without complication- Primary documented in this encounter Care Teams Electricians Top Helper Relationship Specialty Start Date End Date Monique Tenorio FNP PCP - General Family Medicine 02/19/23 11/24/24 Provider, Not In System PCP - General Family Medicine 11/25/24 08/28/25 Valery Stein MD [address] [place] [id number] PCP - General Internal Medicine 08/29/25 Jazzy Adan Community Health Worker 04/06/23 documented as of this encounter
--- OUTSIDE RECORDS SUMMARY | 2025-11-14 17:06 | XMS_ITS | Encounter Summary ---
Author Organization [employer] [facility] Address [address] [place] [address] [address] [place] [address] Care Team Providers Care Cake Puller Name Role Phone Monique Tenorio Primary Care Provider Unavailable Jazzy Adan Unavailable Provider, Not In System Primary Care Provider Un available Valery Stein MD Primary Care Provider [phone] Encounter Details Date Type Department Care Team (Late st Contact Info) Description 11/18/2022 Abstract [place] [address] [place] [address] Dental, Provider, DDS Social History Tobacco Use [...] Description 11/15/2025 2:00 PM EST Office Visit [place] [facility] [address] [place] [address] Dany Le documented as of this encounter Procedures Procedure Name Priority Date/Time Associated Diagnosis Comments 13 DO RESIN-BASED COMPOSITE - 2 SURF, POSTERIOR Routine 10/17/2022 12:00 AM EST PROPHYLAXIS - ADULT Routine 10/17/2022 1 2:00 AM EST PERIODIC ORAL EVALUATION - ESTABLISHED PATIENT Routine 10/17/2022 12:00 AM EST documented in this encounter Visit Diagnoses Not on filedocumented in this encounter Care Teams Cake Puller Relationship Specialty Start Date End Date Monique Tenorio FNP PCP - General Family Medicine 02/19/23 11/24/24 Provider, Not In System PCP - General Family Medicine 11/25/24 08/28/25 Valery Stein MD [address] [place], [place] [id number] PCP - General Internal Medicine 08/29/25 Jazzy Adan Community Health Worker 04/06/23 documented as of this encounter
--- OUTSIDE RECORDS SUMMARY | 2025-11-14 17:07 | XMS_ITS | Clinical Summary ---
Author Organization [facility] Address [address] [place] [phone] Phone Care Team Providers Care Threader Name Role Phone Laura Buchanan MD Primary Care Provider Allergies Active Allergy Reactions Criticality Noted Date [...] reaction(s): itching Peanut 12/22/2022 Medications vit B free-V-EP-iron- vit E 500 mg-400 mcg- 18 mg [...] COLONOSCOPY 2012 SCREENING FOR DIABETES 11/12/2021 11/12/2018 INFLUENZA VACCINE (#1) 2025 , 08/19/2021, 07/27/2020, Additional history exists COVID-19 VACCINE ( season) 2025 10/12/2022, 04/14/2022, 10/18/2021, Additional history exists Adult Td,Tdap Booster 11/09/2032 11/09/2022, 006 RSV VACCINE (1 - 1-dose 75+ series) 2042 ZOSTER VACCINES Completed 11/05/2020, 09/06/2020 PNEUMOCOCCAL VACCINES [...] topic Medical Devices Not on file Insurance Member Subscriber Plan / Payer (Ef fective 2018-Present) Name:Keren Burrell Relation to Subscriber:Self Name:Keren Burrell Payer ID:Not on file Type:HMO Address: [place] [id number] [place], [place] [address] [place] [address] [place] [address] [place] [address] [place] [address] Care Teams Threader Relationship Specialty Start Date End Date Laura Buchanan MD [email or web address] PCP - General Internal Medicine 11/12/18 Additional Source Comments The information contained in this document represents components of the legal health record. It is not the complete legal health record.[facility]
--- OUTSIDE RECORDS SUMMARY | 2025-11-14 17:07 | XMS_ITS | Clinical Summary ---
Author Organization [employer] Address [address] [place] [address] [address] [place] [address] Care Team Providers Care Trim Attacher Name Role Phone Jazzy Adan Unavailable Unavailable Valery Stein MD Primary Care Provider [phone] Allergies Active Allergy Reactions Criticality Noted Date [...] (ZyrTEC ALLERGY) 10 MG capsule ZyrTEC Allergy A ctive LORazepam (Ativan) 0.5 MG tablet if needed. Active albuterol (Proventil HFA) 108 (90 Base) MCG/ACT inhalerIndicatio ns:Asthma in adult without complication, unspecified asthma severity, unspecified whether persistent Inhale 2 puffs every 6 (six) hours if needed for wheezing. 18 g 3 3 Active Vagifem 10 MCG tablet vaginal tablet INSERT ONE TABLET VAGINALLY TWICE A WEEK 8 tablet 4 4 Active EPINEPHrine (Epipen) 0.3 MG/0.3ML injection syringe USE 1 INJECTION DIRECTED NEEDED 2 each 1 4 Active Breo Ellipta 100-25 MCG/ACT aerosol powderIndication s:Moderate persistent asthma, unspecified whether complicated INHALE ONE PUFF BY MOUTH EVERY MORNING 60 each 3 4 Active budesonide (Pulmicort) 0.5 MG/2ML nebulizer solution INHALE 1 VIAL (2ML) VIA NEBULIZER TWCE DAILY 120 mL 11 4 Active Azelastine-Fluti casone 137-50 MCG/ACT suspensionIndica tions:Non-season al allergic rhinitis, unspecified trigger INSTILL 1 SPRAY INTO AFFECTED NOSTRIL(S) TWO TIMES A DAY 23 g 1 5 Active cycloSPORINE (Restasis) 0.05 % ophthalmic emulsionIndicati ons:Keratitis sicca Administer 1 drop into both eyes 2 times daily. 180 each 3 5 Active Active Problems Problem Noted Date Diagnosed [...] Date Stage 1 mild COPD by GOLD cl assification ([facility]) 04/08/2023 07/25/2023 Encounters Date Type Department Care Team Description 11/12/2025 Travel 11/11/[address] [facility] MEDICAL [address] [place] [address] Claire Soils DO Non-seasonal allergic rhinitis, unspecified trigger 09/15/[address] [facility] OPTOMETRY [address] [place] [address] Fady Oliva, OD 09/06/2025 11:30 AM EDT Office Visit [facility] OPTOMETRY [address] [place] [address] Fady Oliva, OD Dry eyes (Primary Dx); Astigmatism of both eyes with presbyopia; Keratitis sicca from Last 3 Months Immunizations Immunization Administration Dates Next Due Influenza Injectable Quadriv alant Preservative Free IIV4 MDCK 11/03/2022,08/19/2021 Influenza injectable quadriv alent IIV4 with preservative 10/14/2019 Influenza injectable quadriv alent preservative free 12/18/2023,07/25/2020 Influenza, IIV3, injectable 07/27/2020,1 ,09/20/2010,08/23,10/23/2008 Influenza, Split (incl. americo fied surface antigen) 09/20/2010 Novel [id number], all formulations 11/13/2009 PPD Test 12/14/2007 Pneumococcal [...] is your housing situation today? I have bulmaroericka ruiz 09/28/[address] you [...] Master's degree (e.g., MA, MS, Michel, MEd, DREDGE MATE, MISHA) 07/22/2023 Comments Unknown Sex and Gender [...] Sign Reading Time Taken Comments Blood Pressure 130/90 09/06/2025 11:40 AM EDT Pulse 104 05/11/2025 2:13 PM EDT [...] Description 11/15/2025 2:00 PM EST Office Visit [facility] DENTAL [address] [place] [address] Dany Le Health Maintenance Due Date Last Done Comments CT Colonography 1967 FIT DNA/Cologuard 1967 FIT 1967 FOBT 1965 Sigmoidoscopy 1965 Disability Screening 1967 Alcohol/Substance Use Screening 1979 Hepatitis A Vaccines (1 of 2 - Risk 2-dose series) 1986 Hepatitis B Vaccines (1 of 3 - 19+ 3-dose series) 1986 RSV Patients and Patients Aged 60 years or older (1 - Risk 50-74 years 1-dose series) 2017 Cervical Cancer Screening 06/29/2024 HPV/Cotest 06/29/2024 06/29/2023, 02/20/2022 Pap Smear 06/29/2024 06/29/2023, 02/20/2022 SDOH Screening 06/29/2024 06/29/2023 Diabetes: Hemoglobin A1C 07/15/2024 023, 02/12/2022, 02/12/2022, Additional history exists Depression Monitoring 10/28/2024 04/27/2024, 024 Dental X-Ray: Full Mouth 11/02/2024 11/01/2021, 07/01 COVID-19 Vaccine ( season) 2025 10/14/2024, 10/12/2022, 04/14/2022, Additional history exists Dental Oral Exam 11/11/2025 05/11/2025, 01/2024, 01/04/2024, Additional history exists Dental Prophylaxis 11/11/2025 05/11/2025, 1 01/02/2024, 01/04/2024, Additional history exists Dental X-Ray: Bitewings 05/12/2026 05/11/20 25, 01/04/2024, 11/01/2021, Additional history exists Tobacco Screening 09/06/2026 09/06/2025 Mammogram 08/11/2027 08/11/2025, 06/30, 07/10/2023, Additional history exists Colonoscopy 11/17/2028 11/17/2018, 11/17/2018 Colorectal Cancer Screening 11/17/2028 Lipid Panel 06/08/2029 06/08/2024, 0804/2023, 02/12/2022, Additional history exists DTaP/Tdap/Td Vaccines (2 - Td or Tdap) 11/09/2032 11/09/2022, 11/18/2006 Zoster Vaccines Completed 11/05/2020, 09/06/2020 Pneumococcal Vaccine: 50+ Years Completed 11/03/2022 HIV Screening Completed 06/08/2024 Hepatitis C Screening Completed 06/08/2024 Influenza Vaccine Completed 08/11/2025, , 12/18/2023, Additional history exists HIB Vaccines Aged Out [...] Procedure Name Priority Date/Time Associated Diagnosis Comments BI MAMMOGRAM SCREENING TOMOSYNTHESIS BILATERAL Routine 08/11/2025 8:30 AM EDT Full PROPHYLAXIS - ADULT Routine 05/11/2025 2:00 PM EDT BITEWINGS - 4 RADIOGRAPHIC IMAGES Routine 05/11/2025 2:00 PM EDT PERIODIC ORAL EVALUATION - ESTABLISHED PATIENT Routine 05/11/2025 2:00 PM EDT HEPATITIS C VIRAL RNA, QN REAL [...] Results * BI Mammogram Screening Tomosynthesis Bilateral (08/11/2025 8:30 AM EDT) Anatomical Region Laterality Modality Breast Bilateral Mammography 08/11/2025 8:30 AM EDT Narrative 08/11/2025 12:24 PM EDT PROCEDURE: MM Digital Mammo Screening INDICATION: Screening for breast cancer. COMPARISON: Back to 09/11/2021. TECHNIQUE: Full-field digital bilateral CC and MLO 3D tomosynthesis. Computer-aided detection (CAD) was utilized in the interpretation of this study. DENSITY: The breasts are heterogeneously dense, which may obscure small masses. FINDINGS: No suspicious masses, microcalcifications, areas of architectural distortion, or skin thickening to suggest malignancy. IMPRESSION: No mammographic evidence of malignancy. RECOMMENDATION: Annual mammographic screening. BI-RADS: 1 (Negative) Lay letter mailed to patient WSN: [id number] Ordering Physician: Monique Tenorio Dictated By: Migue Cherry MD Dictated Date/Time: 08/11/25 12:21 pm Reviewed By: Migue Cherry MD Signed By: Migue Cherry MD Signed Date/Time: 08/11/25 12:21 pm Transcribed By: BOB Skid Worker Date/Time: 08/11/25 12:19 pm Birads: Procedure Note Donotuseinterpreter, Image - 08/11/2025 PROCEDURE: MM Digital Mammo Screening INDICATION: Screening for breast cancer. COMPARISON: Back to 09/11/2021. TECHNIQUE: Full-field digital bilateral CC and MLO 3D tomosynthesis. Computer-aided detection (CAD) was utilized in the interpretation of thisstudy. DENSITY: The breasts are heterogeneously dense, which may obscure smallmasses. FINDINGS: No suspicious masses, microcalcifications, areas ofarchitectural distortion, or skin thickening to suggest malignancy. IMPRESSION: No mammographic evidence of malignancy. RECOMMENDATION: Annual mammographic screening. BI-RADS: 1 (Negative) Lay letter mailed to patient WSN: [id number] Ordering Physician: Monique Tenorio Dictated By: Migue Cherry MD Dictated Date/Time: 08/11/25 12:21 pm Reviewed By: Migue Cherry MD Signed By: Migue Cherry MD Signed Date/Time: 08/11/25 12:21 pm Transcribed By: BOB Skid Worker Date/Time: 08/11/25 12:19 pm Birads: [facility]ED[facility] Shandra l Result * Hepatitis C Viral RNA, Quantitative Real-Time PCR with Reflexes (06/08/2024 3:08 PM EDT) Pathologist [facility] HCV RNA, QN Real Time PCR HCV [...] - 06/11/2024 4:05 PM EDT Performed at: [address] [id number] Owner Spa Director: Glenda Soriano MD, Phone: [phone] [facility] BLOOD ORDERAB[facility] E dited Result - Final [facility] 1 * HIV p24 Antigen/Antibody With Reflex to Confirmation (06/08/2024 3:08 PM EDT) [facility] HIV Ab/p24 Ag Screen Non Reactive Non Reactive [facility] 1 Comment: HIV Negative HIV-1/HIV-2 antibodies and HIV-1 p24 antigen were NOT detected. There is no laboratory evidence of HIV infection. Blood Venous blood specimen / Unknown 06/08/2024 3:08 PM EDT 06/08/2024 Narrative [facility] 1 - 06/10/2024 8:08 AM EDT Performed at: [address] [id number] Owner Spa Director: Carrie Bazzi MD, Phone: [phone] [facility] BLOOD ORDERABLES F inal Result [facility] 1 * (ABNORMAL) Lipid Panel, Standard [...] - 06/09/2024 8:08 AM EDT Performed at: 01 - [address] [id number] Owner Spa Director: Carrie Bazzi MD, Phone: [phone] [facility] BLOOD ORDERABLES F inal Result Performing Organization Address City/[facility]/ZIP Co de Phone Number [facility] 1 * (ABNORMAL) Hemoglobin A1c (07/15/2023 9:10 AM EDT) Hemoglobin A1C 5.7(H) (4.0-5.6) % [facility] Comment: MONITORING: In known diabetic patients, hemoglobin A1c targets should be discussed with health care provider. DIAGNOSTIC USE: The [place] [employer] Association (ADA) and the World Health [...] Supplement 1 Testing performed or reported by [facility], a Service of [facility], [address] [place] [id number] Jaya Jordan MD, Blast Furnace Operator CLIA# [id number] Blood Venous blood specimen / Unknown 07/15/2023 9:10 AM EDT 07/15/2023 9:12 AM EDT Monique Tenorio APPRENTICE INSTRUMENT TECHNICIAN LAB BLOOD ORDERABLES F inal Result [facility] [address] [place] [id number] * PAP, LB with CT/GC and HPV (06/29/2023 4:14 PM EDT) PAP, LB WITH CT/GC AND HPV Patient Name: KEREN KAYE [facility] Comment: Patient : 1965 (Age: 57) Lab Collection Date: 06/29/2023 Accession Date: 06/29/2023 Sign Out Date: 07/02/2023 Tissue Source: 1: THINPREP PIPELINER PAP TEST, CERVICAL: Final Diagnosis: NEGATIVE FOR INTRAEPITHELIAL LESION OR MALIGNANCY. Satisfactory for evaluation. Endocervical/transformation zone present. Procedures/Addenda: Human Papilloma Virus, High-Risk (Any Dx) Status: Signed Out Interpretation: Negative Methodology: Tiqets Aptima HPV mRNA assay (Nucleic Acid Amplification Test, NAAT). Clinical History: Date of Last Menstrual Period: not available Menstrual History: not available Contraceptive History: not available Ancillary Testing: HPV (any dx) Chlamydia/GC Case imaged by the ThinPrep Imaging System with manual rescreening or review. Clinical History (other): z12.4, due for 1 year f/u Phone #: [phone], On-Call Pathologist: [id number] Testing performed or reported by [facility], a Service of [facility], [address] [place] [id number] Jaya Jordan MD, Blast Furnace Operator CLIA# [id number] 06/29/2023 4:14 PM EDT 06/29/2023 6:52 PM EDT Monique Tenorio APPRENTICE INSTRUMENT TECHNICIAN LAB CYTOLOGY ORDERABLE S Final Result [facility] [address] [place] [address] * (ABNORMAL) Colonoscopy (11/17/2018) Colonoscopy Abnormal( A) Normal Comment:Gastritis, hiatal he rnia Historical Provider HEALTH MAINTENANCE Final Result from Last 3 Months or Most Recently Relevant to Health Maintenance Insurance [facility] , [address] [address] DENTAL - [facility] , [address] [place] [address] Care Teams Trim Attacher Relationship Specialty Start Date End Date Valery Stein MD [address] [place] [address] PCP - General Internal Medicine 08/29/25 Jazzy Adan Community Health Worker 04/06/23
== END 2025-11-14 13:44 | disposition home or self-care (01) ==
LOC: HO.RHES 13:08
PROVIDERS: PCP Nurse Practitioner Family; Visit Provider Internal Medicine Rheumatology
DX: R53.82 Chronic fatigue, unspecified (principal); M79.641 Pain in right hand; M79.642 Pain in left hand; R76.89 Other specified abnormal immunological findings in serum; M35.00 Sjogren syndrome, unspecified
CPT/HCPCS: 99213; G2211